=== PATIENT | male | born 1960 | race Caucasian/White ===

== ENCOUNTER 2023-03-25 12:23 | Inpatient (IN) ==
[2023-03-25 13:15] LABS: Appearance Urine Clear (Clear); Bacteria Urine Automated Negative (Negative); Bilirubin Urine Negative (Negative); Blood Urine Negative (Negative); Cast Urine Automated 0 /lpf (0-5); Color Urine Yellow; Epithelial Cell Urine Auto 0-5 /lpf (0-5); Glucose Urine UA Negative (Negative); Ketones Urine Negative (Negative); Leukocyte Esterase Urine Negative (Negative); Nitrite Urine Negative (Negative); Protein Urine 1+ (Negative); RBC Urine Automated 0-4 /hpf (0-4); Specific Gravity Urine 1.017 (1.000-1.030); Urobilinogen Urine Negative (Negative); WBC Urine Automated 0 /hpf (0-5); pH Urine 5.5 (4.5-7.5)
[2023-03-25 13:24] LABS: Basophils # (auto) 0.04 K/uL (0.00-0.20); Basophils % (auto) 0.7 %; Eosinophils % (auto) 3.3 %; Hemoglobin 16.4 g/dl (14.0-18.0); Immature Granulocytes # (auto) 0.01 K/uL (0.01-0.20); Immature Granulocytes % (auto) 0.2 %; Lymphocytes # (auto) 1.67 K/uL (1.20-3.40); Lymphocytes % (auto) 27.8 %; Mean Corpuscular Hemoglobin 33.7 pg (25.0-34.0); Mean Corpuscular Hgb Conc 34.9 g/dL (32.0-36.0); Mean Corpuscular Volume 96.5 fL (80.0-100.0); Mean Platelet Volume 9.9 fL (9.4-12.4); Monocytes # (auto) 0.75 K/uL (0.11-0.59); Monocytes % (auto) 12.5 %; Neutrophils # (auto) 3.34 K/uL (1.40-6.50); Neutrophils % (auto) 55.5 %; Platelet Count 231 K/uL (130-400); RDW Coefficient of Variation 12.6 % (11.5-14.5); RDW Standard Deviation 44.8 fL (36.4-46.3); Red Blood Count 4.87 M/uL (4.70-6.10); White Blood Count 6.01 K/ul (4.8-10.8)
--- NOTE | 2023-03-25 13:24 | Emergency Department Note ---
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 Sister provides most of history. 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 Reports the patient has been having left lower quadrant abdominal pain "for a while" which that she thinks is about the last few weeks. No reported vomiting, nausea or diarrhea. No fevers. Patient had a right nephrectomy secondary to renal cancer. Sister reports the patient has lost significant amounts of weight in the last few weeks despite a good appetite. No reported dysuria or hematuria. Patient denies any radiation of pain into the groin. Describes it as a pressure sensation. ROS: as above PHYSICAL EXAM: Constitutional: Patient appears in no acute distress. HENT: Head: Normocephalic and atraumatic. Eyes: EOMI, PERRL Mouth/Throat: Mucous membranes moist. Neck: Trachea midline. Neck supple. Cardiovascular: RRR, No murmurs, rubs or gallops. Intact distal pulses. Pulmonary/Chest: No respiratory distress. Breath sounds clear and equal bilaterally. No wheezes or rales. Abdominal: Abdomen soft, no rebound or guarding. LLQ TTP Musculoskeletal: No edema, tenderness or deformity noted. Skin: Warm and dry. No rash, erythema, pallor or cyanosis Psychiatric: Appropriate mood and affect for situation. Neurological: Alert and keenly responsive. CN II-XII grossly intact, moving all extremities equally and fully. MDM: - Vitals signs showed hypertension. - History obtained via patient. Patient presents with left lower quadrant abdominal pain. Patient reports that he has had pain in his left lower quadrant for the last few weeks that has gotten progressively more prominent. He reportedly was holding his abdomen at work today, nausea or diarrhea. No reported fevers. - Chronic conditions affecting care: HTN; HLD; DM-2; autism - Differential diagnoses include, but are not limited to: diverticulitis; ischemic colitis; inguinal hernia; ureteral calculi - Order placed for continuous cardiac monitoring. At this time, monitor showed rate of 57 bpm with normal sinus rhythm, per my interpretation. - External medical records reviewed. - Laboratory workup interpreted by myself showed normal WBC; stable electrolytes; elevated creatinine (Cr 1.44); transaminitis (AST 50; ALT 71) - CT abdomen/pelvis wo contrast obtained given patient's renal function and his history of a right-sided nephrectomy. CT showed inflammatory changes between the distal descending colon and proximal sigmoid colon with a linear configuration that likely represents diverticulitis with a developing fistula. No abscess or intraperitoneal free air. - UA negative for infection - Discussed case with [facility] with general surgery. No surgical interventions at this time. Agreed with IV antibiotics. - IV zosyn ordered. - Discussion was had with nurse wound care about patient's case and need for admission - Hospitalist consulted for admission - Patient admitted to [facility] service for further evaluation and management. ASSESSMENT AND PLAN: Diagnosis: diverticulitis with fistula Plan: admit Past Med/Surg History Medical History (Updated 03/25/23 @ 16:51 by Gisele Borden MD) Communication impairment Osteoarthritis DM type 2 (diabetes mellitus, type 2) NIIDM Hyperlipidemia Hypertension Autism Surgical History History of tooth extraction History of right cataract surgery History of colonoscopy Family History Sister Post-operative nausea and vomiting Uncle Diabetes Other No significant family history Social History Smoking Status: Never smoker Second Hand Exposure: No; Do You Dip or Chew Tobacco: No; Hx Alcohol Use: No Hx Substance Use: No Preferred Language: Serbian Communication Ability: Impaired Communication Ability Comment: DIFFICULTY UNDERSTANDING SOME INSTRUCTION; NOT ALWAYS WILLING TO SPEAK [employer] P[employer] Inspector Required: No Beliefs That Will Affect Care: None Current Living Situation: Parent Current Living Situation Comment: Lives with his mom Feels Safe at Home: Yes Assistive Devices: Glasses Allergies Allergies Allergy/AdvReac Type Severity Reaction Status Date / Time No Known Allergies Allergy Verified 03/25/23 16:09 Home Meds Home Medications Medication Instructions Recorded Confirmed simvastatin 10 mg tablet (Zocor) 10 mg PO QPM 12/10/17 03/25/23 aspirin 81 mg tablet,delayed 81 mg PO QAM 07/29/19 03/25/23 release amlodipine 10 mg tablet 10 mg PO QAM 03/25/23 03/25/23 brimonidine 0.2 % eye drops 1 drp OPL BID 03/25/23 03/25/23 chlorthalidone 25 mg tablet 12.5 mg PO QAM 03/25/23 03/25/23 cholestyramine-aspartame 4 gram 1 ea PO BID 03/25/23 03/25/23 oral powder for susp in a packet (Prevalite) cyanocobalamin (vitamin B-12) 1,000 mcg PO QAM 03/25/23 03/25/23 1,000 mcg tablet (Vitamin B-12) dorzolamide 22.3 mg-timolol 6.8 1 drp OPL BID 03/25/23 03/25/23 mg/mL eye drops latanoprost 0.005 % eye drops 1 drp OPL HS 03/25/23 03/25/23 losartan 100 mg tablet 100 mg PO QAM 03/25/23 03/25/23 metformin 500 mg tablet 500 mg PO BID 03/25/23 03/25/23 metoprolol succinate 50 mg 50 mg PO QAM 03/25/23 03/25/23 tablet,extended release 24 hr prednisolone acetate 1 % eye 1 drp OPL DAILY 03/25/23 03/25/23 drops,suspension Results & Data (ED) Vital Signs Vital Signs - 24 hr 03/25/23 12:32 03/25/23 13:02 03/25/23 14:15 Temperature 36.5 C Temperature Source Temporal Artery Scan Pulse Rate 60 68 Pulse Rate [Apical] 68 Pulse Rhythm Regular Pulse Rhythm [Apical] Regular Respiratory Rate 19 18 18 Respiratory Depth Normal Blood Pressure 174/86 H Blood Pressure [Right Arm] 157/89 H Blood Pressure Mean 115 Blood Pressure Mean [Right Arm] 111 Pulse Oximetry 100 100 98 Oxygen Delivery Method Room Air Room Air Room Air Sepsis Recent Fever Within 48 Hours No Sepsis New/Unexplained Change in Mental Status N/A Sepsis Action Taken by Nursing No Action Required 03/25/23 16:03 Temperature Temperature Source Pulse Rate Pulse Rate [Apical] 57 L Pulse Rhythm Pulse Rhythm [Apical] Regular Respiratory Rate 16 Respiratory Depth Blood Pressure Blood Pressure [Right Arm] 173/86 H Blood Pressure Mean Blood Pressure Mean [Right Arm] 115 Pulse Oximetry 99 Oxygen Delivery Method Room Air Sepsis Recent Fever Within 48 Hours Sepsis New/Unexplained Change in Mental Status Sepsis Action Taken by Nursing Laboratory Data 03/25/23 12:52 01/10/24 12:52 Lab Results 03/25/23 Range/Units 12:52 WBC 6.01 (4.8-10.8) K/ul RBC 4.87 (4.70-6.10) M/uL Hgb 16.4 (14.0-18.0) g/dl Hct 47.0 (42.0-52.0) % MCV 96.5 (80.0-100.0) fL MCH 33.7 (25.0-34.0) pg MCHC 34.9 (32.0-36.0) g/dL RDW Std Deviation 44.8 (36.4-46.3) fL RDW Coeff of Deandre 12.6 (11.5-14.5) % Plt Count 231 (130-400) K/uL MPV 9.9 (9.4-12.4) fL Immature Gran % (Auto) 0.2 % Neut % (Auto) 55.5 % Lymph % (Auto) 27.8 % [place] % (Auto) 12.5 % Eos % (Auto) 3.3 % Baso % (Auto) 0.7 % Neut # (Auto) 3.34 (1.40-6.50) K/uL Lymph # (Auto) 1.67 (1.20-3.40) K/uL [place] # (Auto) 0.75 H (0.11-0.59) K/uL Eos # (Auto) 0.20 (0.00-0.50) K/uL Baso # (Auto) 0.04 (0.00-0.20) K/uL Immature Gran # (Auto) 0.01 (0.01-0.20) K/uL Sodium 139 (136-145) mmol/L Potassium 4.0 (3.5-5.1) mmol/L Chloride 105 (98-107) mmol/L Carbon Dioxide 26 (21-32) mmol/L Anion Gap 8 (3-11) BUN 25 H (6-23) mg/dl Creatinine 1.44 H (0.6-1.4) mg/dl Est Cr Clr Drug Dosing 58.4 ml/min Est GFR ( Amer) 59.9 ml/min Est GFR (Non-Af Amer) 51.7 ml/min BUN/Creatinine Ratio 17.4 (10-20) Glucose 104 H (70-99(Fasting)) mg/dl Calcium 10.3 (8.6-10.3) mg/dl Total Bilirubin 0.8 (0.2-1.0) mg/dl AST 50 H (13-39) U/L ALT 71 H (7-52) U/L Alkaline Phosphatase 59 (34-104) U/L Total Protein 9.9 H (6.0-8.3) gm/dl Albumin 5.1 H (3.4-5.0) gm/dl Globulin 4.8 H (2.5-4.0) gm/dl Albumin/Globulin Ratio 1.1 (0.9-2) Lipase 60 (11-82) U/L Urine Color Yellow Urine Appearance Clear (Clear) Urine pH 5.5 (4.5-7.5) Ur Specific [place] 1.017 (1.000-1.030) Urine Protein 1+ H (Negative) Urine Glucose (UA) Negative (Negative) Urine Ketones Negative (Negative) Urine Blood Negative (Negative) Urine Nitrite Negative (Negative) Urine Bilirubin Negative (Negative) Urine Urobilinogen Negative (Negative) Ur Leukocyte Esterase Negative (Negative) Urine WBC (Auto) 0 (0-5) /hpf Urine RBC (Auto) 0-4 (0-4) /hpf U Hyaline Cast (Auto) 0 (0-5) /lpf U Epithel Cells (Auto) 0-5 (0-5) /lpf Urine Bacteria (Auto) Negative (Negative) Administered Medications Discontinued Medications Piperacillin Sod/Tazobactam Sod (Zosyn) 4.5 gm in 100 mls @ 200 mls/hr IV NOW ONE Stop: 03/25/23 16:16 Last Infusion: 03/25/23 16:29 Dose: Infused Documented By: Admin: 03/25/23 15:57 Dose: 200 mls/hr Documented By: SHENA Imaging Data Radiologist's Impression: Abdomen/Pelvis CT 03/25/23 13:01 CT SCAN OF THE ABDOMEN AND PELVIS WITHOUT IV CONTRAST CLINICAL HISTORY: Left lower quadrant abdominal pain. COMPARISON STUDY: Lumbar spine radiographs dated 12/15/2012. TECHNIQUE: CT scan of the abdomen and pelvis is performed from the lung bases to the proximal femora. Images are reviewed in the axial, sagittal, and coronal planes. IV contrast was not administered for this examination. A dose lowering technique was utilized adhering to the principles of ALARA. CT DOSE: 1134.83 mGy.cm FINDINGS: Lung bases: The heart is normal in size and without pericardial effusion. There are coronary artery calcifications. There is bibasilar scarring/atelectasis. The lung bases are otherwise clear. There is a small hiatal hernia. Liver: The unenhanced liver is normal in size, contour, and attenuation. There is no intrahepatic biliary ductal dilatation. Gallbladder: Unremarkable. Spleen: Normal in size and attenuation. Pancreas: Unremarkable. Adrenal glands: Unremarkable. Kidneys: The right kidney is surgically absent. The unenhanced left kidney is normal in size and without hydronephrosis. Left renal cyst measuring 2.0 cm. No left renal calculi are identified. Abdominal vasculature: The abdominal aorta is normal in course and caliber noting moderate atherosclerotic calcification. Bowel: There is moderate colonic fecal retention. Bilateral bowel containing groin hernias are discussed below. The appendix is well-visualized and normal. There is inflammatory change between the distal descending colon and the proximal sigmoid colon seen on axial image #254. This appears to arise from the superior aspect of the sigmoid at the site of a small diverticulum, best seen on the coronal reformatted images. This likely represents the sequelae of diverticulitis with developing fistula. No fluid collection is seen to suggest abscess. Peritoneum: There is no intraperitoneal free air or abdominal ascites. Lymphadenopathy: None. Pelvic viscera: The prostate gland is enlarged and heterogeneous. The bladder is mildly distended, and the wall is thickened/trabeculated indicating chronic outlet obstruction. There are bilateral fat-containing inguinal hernias. The left femoral hernia contains a small segment of the sigmoid colon. The right inguinal hernia contains a tiny segment of small bowel. Skeletal structures: No lytic or blastic lesions are seen. IMPRESSION: 1. There is inflammatory change between the distal descending colon and the proximal sigmoid as above. This is linear in configuration and appears to arise from a small diverticulum along the superior aspect of the sigmoid. This likely presents the sequelae of diverticulitis with a developing fistula. 2. No intraperitoneal free air is seen and there is no fluid collection to suggest abscess. 3. Status post right nephrectomy. 4. There are bilateral bowel containing groin hernias. 5. Prostatomegaly. 6. Additional findings as above. ACT 112: Negative or not required by law. Electronically signed by: Chito Patterson M.D. 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 Forms Stand Alone Forms: My [facility] Prescriptions Prescriptions: No Action simvastatin [Zocor] 10 mg tablet 10 mg PO QPM Rx Instructions: LAST FILLED 12/01/22 FOR 90 DAYS aspirin 81 mg Tablet,Delayed Release (Dr/Ec) 81 mg PO QAM latanoprost 0.005 % drops 1 drp OPL HS metformin 500 mg tablet 500 mg PO BID Rx Instructions: LAST FILLED 12/01/22 FOR 90 DAYS metoprolol succinate 50 mg tablet extended release 24 hr 50 mg PO QAM cyanocobalamin (vitamin B-12) [Vitamin B-12] 1,000 mcg Tablet 1,000 mcg PO QAM chlorthalidone 25 mg Tablet 12.5 mg PO QAM Rx Instructions: UNABLE TO VERIFY THIS MED. prednisolone acetate 1 % drops,suspension 1 drp OPL DAILY amlodipine 10 mg tablet 10 mg PO QAM brimonidine 0.2 % drops 1 drp OPL BID Rx Instructions: PT'S MOTHER UNSURE IF STILL USING THIS EYE DROP dorzolamide-timolol 22.3-6.8 mg/mL drops 1 drp OPL BID losartan 100 mg Tablet 100 mg PO QAM Rx Instructions: UNABLE TO VERIFY THIS MED. cholestyramine-aspartame [Prevalite] 4 gram powder in packet 1 ea PO BID Rx Instructions: LAST FILLED 01/30/23 FOR 30 DAYS Referrals Referrals: Sergey Hameed MD [Primary Care Provider] -
[2023-03-25 13:36] LABS: Albumin Globulin Ratio 1.1 (0.9-2); Albumin Level 5.1 gm/dl (3.4-5.0); BUN Creatinine Ratio 17.4 (10-20); Bilirubin,Total 0.8 mg/dl (0.2-1.0); Calcium 10.3 mg/dl (8.6-10.3); Creatinine Clr Calc Pharmacy 58.4 ml/min; Est GFR (African American) 59.9 ml/min; Est GFR (Non-African American) 51.7 ml/min; Globulin 4.8 gm/dl (2.5-4.0); Total Protein 9.9 gm/dl (6.0-8.3)
--- NOTE | 2023-03-25 14:42 | CT Scan Report ---
CT SCAN OF THE ABDOMEN AND PELVIS WITHOUT IV CONTRAST CLINICAL HISTORY: Left lower quadrant abdominal pain. COMPARISON STUDY: Lumbar spine radiographs dated 12/15/2012. TECHNIQUE: CT scan of the abdomen and pelvis is performed from the lung bases to the proximal femora. Images are reviewed in the axial, sagittal, and coronal planes. IV contrast was not administered for this examination. A dose lowering technique was utilized adhering to the principles of ALARA. CT DOSE: 1134.83 mGy.cm FINDINGS: Lung bases: The heart is normal in size and without pericardial effusion. There are coronary artery c alcifications. There is bibasilar scarring/atelectasis. The lung bases are otherwise clear. There is a small hiatal hernia. Liver: The unenhanced liver is normal in size, contour, and attenuation. There is no intrahepatic belem iary ductal dilatation. Gallbladder: Unremarkable. Spleen: Normal in size and attenuation. Pancreas: Unremarkable. Adrenal glands: Unremarkable. Kidneys: The right kidney is surgically absent. The unenhanced left kidney is normal in size and with out hydronephrosis. Left renal cyst measuring 2.0 cm. No left renal calculi are identified. Abdominal vasculature: The abdominal aorta is normal in course and caliber noting moderate atheroscle rotic calcification. Bowel: There is moderate colonic fecal retention. Bilateral bowel containing groin hernias are discus sed below. The appendix is well-visualized and normal. There is inflammatory change between the dist al descending colon and the proximal sigmoid colon seen on axial image #254. This appears to arise fr om the superior aspect of the sigmoid at the site of a small diverticulum, best seen on the coronal r eformatted images. This likely represents the sequelae of diverticulitis with developing fistula. No fluid collection is seen to suggest abscess. Peritoneum: There is no intraperitoneal free air or abdominal ascites. Lymphadenopathy: None. Pelvic viscera: The prostate gland is enlarged and heterogeneous. The bladder is mildly distended, an d the wall is thickened/trabeculated indicating chronic outlet obstruction. There are bilateral fat-c ontaining inguinal hernias. The left femoral hernia contains a small segment of the sigmoid colon. Th e right inguinal hernia contains a tiny segment of small bowel. Skeletal structures: No lytic or blastic lesions are seen. IMPRESSION: 1. There is inflammatory change between the distal descending colon and the proximal sigmoid as above . This is linear in configuration and appears to arise from a small diverticulum along the superior a spect of the sigmoid. This likely presents the sequelae of diverticulitis with a developing fistula. 2. No intraperitoneal free air is seen and there is no fluid collection to suggest abscess. 3. Status post right nephrectomy. 4. There are bilateral bowel containing groin hernias. 5. Prostatomegaly. 6. Additional findings as above. ACT 112: Negative or not required by law. Electronically signed by: Chito Patterson M.D. 03/25/2023 2:41 PM
[2023-03-25] MEDS ORDERED: PIPERACILLIN/TAZOBACTAM 4.5 GM/100 ML BAG IV ONE (15:47)
--- NOTE | 2023-03-25 15:51 | Surgery Consultation ---
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 ER with his sister Tiffanie Quezada. Tiffanie reports that she was called by [employer] and told that Patty was acting like he was having some abdominal pain and favoring the LLQ, which prompted her to bring him in. Patient denies fever, chills, SOB, CP, abdominal pain, N/V. Tiffanie reports Patty does not complain and does not tell when he is having pain. A CT scan was completed and reading diverticulitis with possible fistula. Tiffanie and Patty deny known change in bowel or bladder habits, or known hx of diverticulosis. Tiffanie does report she thinks Patty has lost some weight in the last two months despite him eating a lot. Patty lives with his 90 year old mother and another sister. Tiffanie reports she makes all the medical decisions for patty and phone number is [phone]. Abdominal exam: soft , non-distended, non-rigid, patient noted to tense up with deep palpation in LLQ and RLQ however when asked if he is having pain he reports no. No elevation of WBC , VSS, afebrile On CT scan IMPRESSION: 1. There is inflammatory change between the distal descending colon and the proximal sigmoid as above. This is linear in configuration and appears to arise from a small diverticulum along the superior aspect of the sigmoid. This likely presents the sequelae of diverticulitis with a developing fistula. 2. No intraperitoneal free air is seen and there is no fluid collection to suggest abscess. 3. Status post right nephrectomy. 4. There are bilateral bowel containing groin hernias. 5. Prostatomegaly. 6. Additional findings as above. Keep NPO IV Fluids for hydration IV antiemetic PRN IV antibiotics Zosyn was started in the ER IV analgesic PRN Will discuss case with on-call surgeon Dr. Cowan and further recommendations will be forthcoming. Supervising Physician Co-Signing Physician Notes pnt S&E, d/w family, labs and imaging reviewed, agree with above. admitted with abd pain, ct with diverticulosis with possible colocolonic fistula. afvss, abd soft, nt. wbc normal. ct personally reviewed and limited w/o iv or oral contrast, see diverticulum with likely mild diverticulitis and linear area of concern, but fistula difficult to call definitively. no surgical intervention indicated. recommend clears today, iv abx. outpatient f/u with colorectal surgery/GI. ct w/ oral and iv might better define process, but don't need to perform while inpatient unless condition worsens. History of Present Illness Reason for Consultation: CT showing diverticulitis with possible fistula Requesting Physician: Dr. Borden History of Present Illness Patient is a 62 yo male with [facility] Communication impairment, Osteoarthritis, DM type 2 (diabetes mellitus, type 2), Hyperlipidemia ,Hypertension, Autism, Renal cancer s/p right nephrectomy, that presented to the [facility] ER with his sister Tiffanie Quezada. Tiffanie reports that she was called by [employer] and told that Patty was acting like he was having some abdominal pain and favoring the LLQ, which prompted her to bring him in. Patient denies fever, chills, SOB, CP, abdominal pain, N/V. Tiffanie reports Patty does not complain and does not tell when he is having pain. A CT scan was completed and reading diverticulitis with possible fistula. Tiffanie and Patty deny known change in bowel or bladder habits, or known hx of diverticulosis. Tiffanie does report she thinks Patty has lost some weight in the last two months despite him eating a lot. Patty lives with his 90 year old mother and another sister. Tiffanie reports she makes all the medical decisions for patty and phone number is [phone]. Allergies Allergy/AdvReac Type Severity Reaction Status Date / Time No Known Allergies Allergy Verified 03/25/23 16:09 Home Medications Medication Instructions Recorded Confirmed Type simvastatin 10 mg tablet (Zocor) 10 mg PO QPM 12/10/17 03/25/23 History aspirin 81 mg tablet,delayed 81 mg PO QAM 07/29/19 03/25/23 History release amlodipine 10 mg tablet 10 mg PO QAM 03/25/23 03/25/23 History brimonidine 0.2 % eye drops 1 drp OPL BID 03/25/23 03/25/23 History chlorthalidone 25 mg tablet 12.5 mg PO QAM 03/25/23 03/25/23 History cholestyramine-aspartame 4 gram 1 ea PO BID 03/25/23 03/25/23 History oral powder for susp in a packet (Prevalite) cyanocobalamin (vitamin B-12) 1,000 mcg PO QAM 03/25/23 03/25/23 History 1,000 mcg tablet (Vitamin B-12) dorzolamide 22.3 mg-timolol 6.8 1 drp OPL BID 03/25/23 03/25/23 History mg/mL eye drops latanoprost 0.005 % eye drops 1 drp OPL HS 03/25/23 03/25/23 History losartan 100 mg tablet 100 mg PO QAM 03/25/23 03/25/23 History metformin 500 mg tablet 500 mg PO BID 03/25/23 03/25/23 History metoprolol succinate 50 mg 50 mg PO QAM 03/25/23 03/25/23 History tablet,extended release 24 hr prednisolone acetate 1 % eye 1 drp OPL DAILY 03/25/23 03/25/23 History drops,suspension Patient History Medical History CKD (chronic kidney disease), stage III Renal cell carcinoma Communication impairment Osteoarthritis DM type 2 (diabetes mellitus, type 2) NIIDM Hyperlipidemia Hypertension Autism Surgical History History of nephrectomy, right History of tooth extraction History of right cataract surgery History of colonoscopy Family History Sister Post-operative nausea and vomiting Uncle Diabetes Other No significant family history Social History Smoking Status: Never smoker Second Hand Exposure: No; Do You Dip or Chew Tobacco: No; Hx Alcohol Use: No Hx Substance Use: No Preferred Language: Ethiopian Communication Ability: Impaired Communication Ability Comment: DIFFICULTY UNDERSTANDING SOME INSTRUCTION; NOT ALWAYS WILLING TO SPEAK Drosser Required: No Beliefs That Will Affect Care: None Current Living Situation: Parent Current Living Situation Comment: Lives with his mom Feels Safe at Home: Yes Assistive Devices: Glasses Review of Systems Constitutional: + weight loss; no fever and no chills Eyes: + corrective lenses Ear, Nose, Mouth, Throat: no problem reported Respiratory: no cough and no dyspnea Cardiovascular: no chest pain Gastrointestinal: no abdominal pain, no nausea, no vomiting and no change in bowel habits Genitourinary: no problem reported Musculoskeletal: no muscle weakness Integumentary: no rash Psychiatric: Trouble with communication Physical Exam Physical Exam: alert Constitutional: cooperative and comfortable; no acute distress ENMT: external ear and nose normal, oropharynx normal Neck: trachea midline, no thyromegaly Respiratory: normal respiratory effort and able to speak in complete sentences; no respiratory distress Cardiovascular: Rate/Rhythm: regular rate Gastrointestinal (Abdomen): Inspection/Auscultation: abdomen not distended Percussion/Palpation: abdomen soft; abdomen not rigid Skin: no rashes, warm and dry Neurologic: Hx of autism Results & Data Vital Signs (Past 12 Hours) Vital Signs Temp Pulse Pulse Resp BP BP Pulse Ox 03/25/23 14:15 68 18 157/89 H 98 03/25/23 13:02 68 18 100 03/25/23 12:32 97.7 F 60 19 174/86 H 100 O2 Del Method 03/25/23 14:15 Room Air 03/25/23 13:02 Room Air 03/25/23 12:32 Room Air Diagnostic Findings [place], [place] [phone] CT Scan Report Patient: PATTY BAILEY Admit Date: 03/25/23 MR#: [id number] Address1: [address] [place] [address] Acct ID:[id number] Address2: Date: 1960 [facility] Zip: [place] [address] Age: 62 Location: ED Sex: M Room/Bed: Att Phy: Diagnosis: FLANK PAIN Laura Phy: Sergey Hameed MD Service Date: 03/25/23 [facility] Phy: Interpreting Phy: Chito Patterson MDAdmit Phy: Ordering Phy: Gisele Borden MD cc: ~ CT SCAN OF THE ABDOMEN AND PELVIS WITHOUT IV CONTRAST CLINICAL HISTORY: Left lower quadrant abdominal pain. COMPARISON STUDY: Lumbar spine radiographs dated 12/15/2012. TECHNIQUE: CT scan of the abdomen and pelvis is performed from the lung bases to the proximal femora. Images are reviewed in the axial, sagittal, and coronal planes. IV contrast was not administered for this examination. A dose lowering technique was utilized adhering to the principles of ALARA. CT DOSE: 1134.83 mGy.cm FINDINGS: Lung bases: The heart is normal in size and without pericardial effusion. There are coronary artery calcifications. There is bibasilar scarring/atelectasis. The lung bases are otherwise clear. There is a small hiatal hernia. Liver: The unenhanced liver is normal in size, contour, and attenuation. There is no intrahepatic biliary ductal dilatation. Gallbladder: Unremarkable. Spleen: Normal in size and attenuation. Pancreas: Unremarkable. Adrenal glands: Unremarkable. Kidneys: The right kidney is surgically absent. The unenhanced left kidney is normal in size and without hydronephrosis. Left renal cyst measuring 2.0 cm. No left renal calculi are identified. Abdominal vasculature: The abdominal aorta is normal in course and caliber noting moderate atherosclerotic calcification. Bowel: There is moderate colonic fecal retention. Bilateral bowel containing groin hernias are discussed below. The appendix is well-visualized and normal. There is inflammatory change between the distal descending colon and the proximal sigmoid colon seen on axial image #254. This appears to arise from the superior aspect of the sigmoid at the site of a small diverticulum, best seen on the coronal reformatted images. This likely represents the sequelae of diverticulitis with developing fistula. No fluid collection is seen to suggest abscess. Peritoneum: There is no intraperitoneal free air or abdominal ascites. Lymphadenopathy: None. Pelvic viscera: The prostate gland is enlarged and heterogeneous. The bladder is mildly distended, and the wall is thickened/trabeculated indicating chronic outlet obstruction. There are bilateral fat-containing inguinal hernias. The left femoral hernia contains a small segment of the sigmoid colon. The right inguinal hernia contains a tiny segment of small bowel. Skeletal structures: No lytic or blastic lesions are seen. IMPRESSION: 1. There is inflammatory change between the distal descending colon and the proximal sigmoid as above. This is linear in configuration and appears to arise from a small diverticulum along the superior aspect of the sigmoid. This likely presents the sequelae of diverticulitis with a developing fistula. 2. No intraperitoneal free air is seen and there is no fluid collection to suggest abscess. 3. Status post right nephrectomy. 4. There are bilateral bowel containing groin hernias. 5. Prostatomegaly. 6. Additional findings as above. Results Complete Blood Count Results: RBC 4.87 M/uL (4.70-6.10) 03/25/23 WBC 6.01 K/ul (4.8-10.8) 03/25/23 Hgb 16.4 g/dl (14.0-18.0) 03/25/23 Hct 47.0 % (42.0-52.0) 03/25/23 Plt Count 231 K/uL (130-400) 03/25/23 Results BMP Results: Sodium 139 mmol/L (136-145) 03/25/23 Potassium 4.0 mmol/L (3.5-5.1) 03/25/23 Chloride 105 mmol/L (98-107) 03/25/23 Carbon Dioxide 26 mmol/L (21-32) 03/25/23 Anion Gap 8 (3-11) 03/25/23 BUN 25 mg/dl (6-23) H 03/25/23 Creatinine 1.44 mg/dl (0.6-1.4) H 03/25/23 Glucose 104 mg/dl (70-99(Fasting)) H 03/25/23 Results CMP Results: Na 139 mmol/L (136-145) 03/25/23 K 4.0 mmol/L (3.5-5.1) 03/25/23 Cl 105 mmol/L (98-107) 03/25/23 CO2 26 mmol/L (21-32) 03/25/23 Anion Gap 8 (3-11) 03/25/23 BUN 25 mg/dl (6-23) H 03/25/23 Creatinine 1.44 mg/dl (0.6-1.4) H 03/25/23 Estimated GFR ( Amer) 59.9 ml/min 03/25/23 Estimated GFR (Non-Af Amer) 51.7 ml/min 03/25/23 BUN/Creatinine Ratio 17.4 (10-20) 03/25/23 Glu 104 mg/dl (70-99(Fasting)) H 03/25/23 Ca 10.3 mg/dl (8.6-10.3) 03/25/23 Total Bilirubin 0.8 mg/dl (0.2-1.0) 03/25/23 AST 50 U/L (13-39) H 03/25/23 ALT 71 U/L (7-52) H 03/25/23 Alkaline Phosphatase 59 U/L (34-104) 03/25/23 TP 9.9 gm/dl (6.0-8.3) H 03/25/23 Albumin 5.1 gm/dl (3.4-5.0) H 03/25/23 Globulin 4.8 gm/dl (2.5-4.0) H 03/25/23 Albumin/Globulin Ratio 1.1 (0.9-2) 03/25/23 PG Care Time/CCT Total # of Minutes Spent Total Time Spent with Patient: Total time spent is greater than 50% in coordination of care (as documented) at patient's floor/unit and/or counseling patient: Coding Level of Care Code 08396 INT INP/OBS CARE 40MIN Diagnoses 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
--- NOTE | 2023-03-25 17:30 | History & Physical Report ---
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 In the ED, CT ABD/pelvis shows There is inflammatory change between the distal descending colon and the proximal sigmoid as above. This is linear in configuration and appears to arise from a small diverticulum along the superior aspect of the sigmoid. This likely presents the sequelae of diverticulitis with a developing fistula. Patient is afebrile, WBC 6K Evaluated by general surgery in the ED S/p Zosyn in the ED, continue with N.p.o., IVF Colonoscopy 04/2022-entire examined colon is normal, recommend repeat in 5 years; will need follow-up colonoscopy in 6 to 8 weeks in follow up of diverticulitis and reported weight loss by sister. (2) Hypertension: Plan: Chronic, stable Continue amlodipine, losartan, metoprolol Hold chlorthalidone for now (3) DM type 2 (diabetes mellitus, type 2): Plan: Hgb A1c 6.4 12/2021 Hold metformin and utilize NovoLog per protocol while hospitalized Update A1c with a.m. labs (4) CKD (chronic kidney disease), stage III: Plan: Baseline creatinine mid 1s Creatinine 1.4 today Monitor renal functions (5) Renal cell carcinoma: Plan: S/p right nephrectomy No acute issue DVT PROPHYLAXIS SCDs for now Patient seen in collaboration conversation with Dr. Tillman. I spent a total of 75 minutes coordinating, documenting, and providing care for this patient excluding time spent in the performance of separately billed services. This included personally reviewing all current laboratories and imaging studies, medication reconciliation, outpatient chart review, and discus janie with specialists. History of Present Illness Chief Complaint: Abdominal pain Primary Care Provider: Sergey Hameed MD 62-year-old male with PMH intellectual disability, DM type II, dyslipidemia, HTN, CKD stage III, renal cell carcinoma s/p right nephrectomy, and other problems listed below who presents to the ED for evaluation of abdominal pain. History limited from the patient due to underlying intellectual disability, history obtained from the sister who is the bedside. 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 Sister also reports that she has noted a large amount of weight loss over the past 2 months however she is unsure of how many pounds. Reports that patient continues to have a good appetite. No other symptoms reported. Denies vomiting and diarrhea. No fevers or chills. In the ED, patient is afebrile, hemodynamically stable, WBC 6K. CT ABD/pelvis shows There is inflammatory change between the distal descending colon and the proximal sigmoid as above. This is linear in configuration and appears to arise from a small diverticulum along the superior aspect of the sigmoid. This likely presents the sequelae of diverticulitis with a developing fistula. Patient was given IV Zosyn and general surgery has evaluated the patient. Allergies Allergy/AdvReac Type Severity Reaction Status Date / Time No Known Allergies Allergy Verified 03/25/23 16:09 Home Medications Medication Instructions Recorded Confirmed Type simvastatin 10 mg tablet (Zocor) 10 mg PO QPM 12/10/17 03/25/23 History aspirin 81 mg tablet,delayed 81 mg PO QAM 07/29/19 03/25/23 History release amlodipine 10 mg tablet 10 mg PO QAM 03/25/23 03/25/23 History brimonidine 0.2 % eye drops 1 drp OPL BID 03/25/23 03/25/23 History chlorthalidone 25 mg tablet 12.5 mg PO QAM 03/25/23 03/25/23 History cholestyramine-aspartame 4 gram 1 ea PO BID 03/25/23 03/25/23 History oral powder for susp in a packet (Prevalite) cyanocobalamin (vitamin B-12) 1,000 mcg PO QAM 03/25/23 03/25/23 History 1,000 mcg tablet (Vitamin B-12) dorzolamide 22.3 mg-timolol 6.8 1 drp OPL BID 03/25/23 03/25/23 History mg/mL eye drops latanoprost 0.005 % eye drops 1 drp OPL HS 03/25/23 03/25/23 History losartan 100 mg tablet 100 mg PO QAM 03/25/23 03/25/23 History metformin 500 mg tablet 500 mg PO BID 03/25/23 03/25/23 History metoprolol succinate 50 mg 50 mg PO QAM 03/25/23 03/25/23 History tablet,extended release 24 hr prednisolone acetate 1 % eye 1 drp OPL DAILY 03/25/23 03/25/23 History drops,suspension Past Med/Surg History Medical History CKD (chronic kidney disease), stage III Renal cell carcinoma Communication impairment Osteoarthritis DM type 2 (diabetes mellitus, type 2) NIIDM Hyperlipidemia Hypertension Autism Surgical History History of nephrectomy, right History of tooth extraction History of right cataract surgery History of colonoscopy Family History Sister Post-operative nausea and vomiting Uncle Diabetes Other No significant family history Social History Smoking Status: Never smoker Second Hand Exposure: No; Do You Dip or Chew Tobacco: No; Hx Alcohol Use: No Hx Substance Use: No Preferred Language: Occitan Communication Ability: Impaired Communication Ability Comment: patient can answer yes or no questions but otherwise non-verbal Administrative Project Coordinator Required: No Beliefs That Will Affect Care: None Current Living Situation: Family Current Living Situation Comment: lives at home with mother Feels Safe at Home: Yes Assistive Devices: Glasses Physical Exam Constitutional: WD/WN, vitals as above no acute distress Eyes: PERRL, conjunctivae normal, anicteric sclerae ENMT: external ear and nose normal, oropharynx normal Respiratory: normal respiratory effort, lungs clear to auscultation Cardiovascular: Rate/Rhythm: regular rate and regular rhythm Vessels: normal peripheral pulses Extremities: no edema Gastrointestinal (Abdomen): normal bowel sounds, soft, nontender, no hepatosplenomegaly Musculoskeletal: no cyanosis or clubbing, extremities motor strength 5/5 Skin: no rashes, warm and dry Neurologic: PERRL, EOMI, accommodation nl, no face palsy, no dysarthria Underlying collateral disability Psychiatric: Orientation: alert, oriented to person, oriented to place and cooperative Results & Data Results & Data Vital Signs (Past 12 Hours) Vital Signs Temp Pulse Pulse Resp BP BP Pulse Ox 03/25/23 16:03 57 L 16 173/86 H 99 03/25/23 14:15 68 18 157/89 H 98 03/25/23 13:02 68 18 100 03/25/23 12:32 36.5 C 60 19 174/86 H 100 O2 Del Method 03/25/23 16:03 Room Air 03/25/23 14:15 Room Air 03/25/23 13:02 Room Air 03/25/23 12:32 Room Air Laboratory Results Short CBC 03/25/23 Range/Units 12:52 WBC 6.01 (4.8-10.8) K/ul Hgb 16.4 (14.0-18.0) g/dl Hct 47.0 (42.0-52.0) % Plt Count 231 (130-400) K/uL [facility] 03/25/23 12:52 Sodium 139 Potassium 4.0 Chloride 105 Carbon Dioxide 26 BUN 25 H Creatinine 1.44 H Glucose 104 H Calcium 10.3 Liver Function 03/25/23 Range/Units 12:52 Total Bilirubin 0.8 (0.2-1.0) mg/dl AST 50 H (13-39) U/L ALT 71 H (7-52) U/L Alkaline Phosphatase 59 (34-104) U/L Albumin 5.1 H (3.4-5.0) gm/dl Urine 03/25/23 Range/Units 12:52 Urine Color Yellow Urine Appearance Clear (Clear) Urine pH 5.5 (4.5-7.5) Ur Specific [place] 1.017 (1.000-1.030) Urine Protein 1+ H (Negative) Urine Glucose (UA) Negative (Negative) Diagnostic Findings Short CBC 03/25/23 Range/Units 12:52 WBC 6.01 (4.8-10.8) K/ul Hgb 16.4 (14.0-18.0) g/dl Hct 47.0 (42.0-52.0) % Plt Count 231 (130-400) K/uL [facility] 03/25/23 12:52 Sodium 139 Potassium 4.0 Chloride 105 Carbon Dioxide 26 BUN 25 H Creatinine 1.44 H Glucose 104 H Calcium 10.3 Liver Function 03/25/23 Range/Units 12:52 Total Bilirubin 0.8 (0.2-1.0) mg/dl AST 50 H (13-39) U/L ALT 71 H (7-52) U/L Alkaline Phosphatase 59 (34-104) U/L Albumin 5.1 H (3.4-5.0) gm/dl Urine 03/25/23 Range/Units 12:52 Urine Color Yellow Urine Appearance Clear (Clear) Urine pH 5.5 (4.5-7.5) Ur Specific [place] 1.017 (1.000-1.030) Urine Protein 1+ H (Negative) Urine Glucose (UA) Negative (Negative) Code Status & VTE Plan VTE Prophylaxis Plan VTE Prophylaxis will be ordered: Yes Supervising Physician Co-Signing Physician Notes I have seen and examined the patient and have discussed the case with the provider above. I agree with the assessment and plan as stated. 62-year-old man with IDN history as noted above presents with right lower quadrant pain. The patient is somewhat nonverbal and although he can follow instructions he is reporting no symptoms. On exam he is hemodynamically stable and afebrile and appears comfortable until I push in his left lower quadrant when he starts to tense up somewhat. Abdomen is nondistended. Physical exam as otherwise noted above. Patient has no evidence of sepsis. CT abdomen pelvis revealed sequela of diverticulitis with developing fistula. Patient is afebrile and normal white blood cell count. Agree with plan to continue broad-spectrum antibiotics. Appreciate surgery evaluation patient. Placed on clear liquid diet per recommendations. Continue supportive care efforts. I did discuss the plan with mom and sister who are at bedside. DO Primo
--- OUTSIDE RECORDS SUMMARY | 2023-03-25 17:52 | External Medical Summary | Summary of Care ---
Author Name Unknown Organization [facility] Address [address] [facility] [address] Phone [phone] Care Team Providers Care Firing Pin Gauger Name Role Phone Sergey Belcher MD Primary Care Provider + Reason for Visit * Reason Onset Date Comments Medication Refill 12/23/2022 Encounter Details Date Type Department Care Team Description 12/23/2022 Refill General Internal Medicine [facility] [address] [place] [address] [facility] [address] [facility] [address] Allergies No known active allergiesdocumented as of this encounter (statuses as of 12/24/2022) Medications Medication Sig Dispensed Refills Start Date End Date Status GLUCOMETER DIABETES CARE KITIndications:DM type 2, goal A1c below 7 check glucose fasting in the morning daily 1 0 05/28/2005 Active aspirin 81 MG chewable tablet Take 1 Tablet by mouth in the morning. with food.. 100 Tab 5 10/24/2015 Active prednisolone acetate (PRED FORTE) 1 % ophthalmic suspension 0 03/24/2017 Active Cyanocobalamin (VITAMIN B-12) 1000 MCG TabletIndications:B 12 deficiency Take 1 Tablet by mouth in the morning. 0 03/31/2017 Active OneTouch UltraSoft Lancets MISCIndications:Typ e 2 diabetes mellitus with hemoglobin A1c goal of less than 7.0% ([facility]) Use once daily every morning; dx E11.9 100 Each 1 09/12/2019 Active Latanoprost 0.005 % Ophthalmic Solution (Xalatan) Instill 1 Drop into the left eye at bedtime. 0 07/02/2020 Active Chlorthalidone 25 MG Oral Tablet (Hygroton)Indicatio ns:HTN, goal below 140/90 Take by mouth 0.5 Tablets in the morning. In the morning.. 45 Tablet 3 08/21/2021 Active Losartan Potassium 100 MG Oral Tablet (Cozaar)Indications :HTN, goal below 140/90 Take by mouth 1 Tablet in the morning. 90 Tablet 3 08/21/2021 Active OneTouch Ultra Blue In Vitro Strip (Glucose Blood) CHECK GLUCOSE DAILY IN THE MORNING E11.9 100 Strip 3 03/03/2022 Active Dorzolamide HCl-Timolol Mal 22.3-6.8 MG/ML Ophthalmic Solution (Cosopt Ocumeter Plus) INSTILL 1 DROP INTO THE LEFT EYE TWICE DAILY 0 06/19/2022 Active Brimonidine Tartrate-Timolol 0.2-0.5 % Ophthalmic Solution 1 Drop in the morning and 1 Drop before bedtime. 0 Active Cholecalciferol 50 MCG (1999 UT) Oral CapsuleIndications: Vitamin D deficiency Take 1 Capsule by mouth in the morning. 30 Capsule 3 09/29/2022 01/27/2023 Active amLODIPine Besylate 10 MG Oral Tablet (Norvasc)Indication s:HTN, goal below 140/90 Take 1 Tablet by mouth in the morning. 90 Tablet 3 11/14/2022 Active Metoprolol Succinate ER 50 MG Oral Tablet Extended Release 24 Hour (toPROL XL)Indications:HTN, goal below 140/90 Take 1 Tablet by mouth in the morning. 90 Tablet 3 11/14/2022 Active Simvastatin 10 MG Oral Tablet (Zocor)Indications: Dyslipidemia, goal LDL below 160 take 1 tablet by mouth at bedtime 90 Tablet 0 12/01/2022 Active Cholestyramine Light 4 GM Oral Packet (Prevalite)Indicati ons:Dyslipidemia, goal LDL below 100 DISSOLVE 1 PACKET IN 8 OZ OF WATER AND DRINK BY MOUTH TWICE A DAY DIRECTED 60 Packet 2 12/04/2022 Active metFORMIN HCl 500 MG Oral Tablet (Glucophage)Indicat ions:Type 2 diabetes mellitus with hemoglobin A1c goal of less than 7.0% (HCC) take 1 tablet by mouth twice a day with food 180 Tablet 1 12/22/2022 Active Dynamis Softwareuch Ultra In Vitro Strip (Glucose Blood) CHECK GLUCOSE DAILY IN THE MORNING E11.9 100 Strip 3 12/24/2022 Active documented as of this encounter (statuses as of 12/24/2022) Active Problems Problem Noted Date Elevated LFTs 02/02/2022 Chronic kidney disease, stage 3a 022 Overview: Per CKD protocol Renal cell carcinoma of right kidney HTN, goal below 140/90 05/21/2015 Overview: Per HTN Protocol #27. DYSLIPIDEMIA, GOAL LDL BELOW 100 009 Overview: Per Lipid Taxonomy. Type 2 diabetes mellitus with hemoglobin A1c goal of less than 7.0% 01/11/2009 Overview: Per Diabetes Taxonomy. ICD-10 update of inactive term Intellectual disability 06/10/2000 documented as of this encounter (statuses as of 12/24/2022) Resolved Problems Problem Noted Date Resolved Date Type 2 diabetes mellitus with diabetic nephropat hy 12/23/2021 03/21/2022 Hematuria, gross 03/27/2021 12/23/2021 Right renal mass 03/27/2021 12/23/2021 HTN, GOAL BELOW 140/80 11/03/2011 6 Overview: Per HTN Protocol #27. HTN, GOAL BELOW 130/80 02/06/2009 2 Overview: Modified per HTN protocol #16. ADVANCE DIRECTIVE INFORMATION 07/16/2004 Overview: not applicable Type 2 diabetes mellitus wit h hemoglobin A1c goal of less than 7.0% 07/16/2004 01/11/2009 Overview: Per Diabetes Taxonomy. ICD-10 update of inactive term Other specified disorders of liver 04/26/2004 07/28/2017 HYPERLIPIDEMIA NEC-NOS 9 Overview: Per Lipid Taxonomy. HYPERTENSION NOS 02/06/2009 Overview: Modified per HTN protocol #16. documented as of this encounter (statuses as of 12/24/2022) Immunizations Name Administration Dates Next Due COVID-19 mRNA, LNP-s, No Pre serve, 2-Dose Series (Pfizer) 12/18/2020,06/04/2020,05/14/2020 Diptheria/Tetanus (Adult) 08/14/2005 H1N1 2009 Influenza, IM 01/28/2009 Hepatitis B, 20+ yrs 04/14/2014,10/25/2013,09/20 PPD 10/22/2015,10/15/2015 Pneumococcal Conjugate Vacci ne, 20-valent ([id number]) 07/02/2022 Pneumococcal Polysaccharide PPV23 (Pneumovax) 04/14/2006 SEASONAL INFLUENZA, PF, 6 M & Above, IM , (FLULAVAL or FLUZONE) 12/23/2021,01/25/2021,12/09/2019,11/23,12/07/2017 Seasonal Influenza, Quadriva lent, No Preserve, IM 11/26/2016,01/25/2016,01/18/2015 Seasonal Influenza, Split, I IV3, With Preserve, Inj 12/26/2013,01/28/2013,12/09/2011,12/10,11/28/2009,01/09/2009,12/30/2007 ,12/31/2006,02/04/2006 TDAP (age 10 and older)(Boostrix) 10/24/2015 documented as of this encounter Social History Tobacco Use Types Packs/Day Years Used Date Smoking Tobacco: Never Smokeless Tobacco: Never Alcohol Use Standard Drinks/Week Comments No 0 (1 standard drink = 0.6 oz pur e alcohol) Food Insecurity Answer Date Recorded Within the past 12 months, y ou worried that your food would run out before you got money to buy more. Never true 09/24/2020 Within the past 12 months, t he food you bought just didn't last and you didn't have money to get more. Never true 09/24/2020 Sex Assigned at Date Recorded Male 08/25/2018 3:37 PM E [employer] Job Start Date Occupation Industry Not on file Not on file Not on file documented as of this encounter Functional Status Functional Status Response Date of Assess ment Are you deaf or do you have serious difficulty h earing? No 05/09/2021 Are you blind or do you have serious difficulty seeing, even when wearing glasses? No 05/09/2021 Do you have serious difficul ty walking or climbing stairs? (5 years old or older) No 05/09/2021 Do you have difficulty dress ing or bathing? (5 years old or older) No 05/09/2021 Because of a physical, menta l, or emotional condition, do you have difficulty doing errands alone such as visiting a doctor s office or shopping? (15 years old or older) Yes 05/09/19 Cognitive Status Response Date of Assessm ent Because of a physical, menta l, or emotional condition, do you have serious difficulty concentrating, remembering, or making decisions? (5 years old or older Yes 05/09/2021 documented as of this encounter Miscellaneous Notes * Telephone Encounter - Gurmeet Jerome RPh - 12/24/2022 10:35 AM EDTSigned Prescriptions: Disp Refills OneTouch Ultra In Vitro Strip (Glucose Blo*100 St*3 Sig: CHECK GLUCOSE DAILY IN THE MORNING E11.9Authorizing Provider: SERGEY BELCHER User: GURMEET JEROME * Telephone Encounter - Milly Aguilera CPhT - 12/23/2022 10:58 AM EDT Could not pend previous RX Did you pend patient's preferred pharmacy and medication before forwarding?yes Pharmacy: [id number] Pending Prescriptions: Disp Refills OneTouch Ultra In Vitro Strip (Glucose Bl*100 St*3 Sig: CHECK GLUCOSE DAILY IN THE MORNING E11.9 Last Visit: 07/02/2022 (in office), Visit date not found (telemedicine) Next Visit: 04/02/2023 If no future appointments scheduled, and last appointment is greater than a year ago, please schedule patient for a follow-up appointment Last date the medication was ordered: 03/03/2022 Is this request for a controlled substance?No Urine Drug Screen:No results found for this or any previous visit. Patient Phone Numbers Labs: Lab Results Component Value Date/Time CREAT 1.4 (H) 09/25/2022 02:13 PM CREAT 1.1 09/15/2019 02:08 PM POTASSIUM 4.1 09/25/2022 02:13 PM POTASSIUM 4.5 09/15/2019 02:08 PM TSH 2.04 11/23/2018 09:28 AM LDLCALC 62 05/28/2021 09:36 AM LDLCALC UNINTERPRETABLE RESULT 01/18/2015 09:02 AM LDLDIRECT 52 05/24/2020 03:12 PM LDLDIRECT 53 09/15/2019 02:08 PM LDLDIRECT 60 11/23/2018 09:28 AM ALT 74 (H) 09/25/2022 02:13 PM ALT 76 (H) 09/15/2019 02:08 PM HGBA1C 6.4 (H) 12/23/2021 02:14 PM HGBA1C 7.1 (H) 01/23/2020 03:38 PM documented in this encounter Plan of Treatment Upcoming Encounters Date Type Specialty Care Team Description 04/02/2023 Office Visit Internal Medicine Sergey Belcher MD [address] [place] [address] 04/03/2023 Office Visit Nephrology Regis Garner MD [address] [place] [address] 04/17/2023 Imaging Radiology 05/05/2023 Office Visit Urology Osorio Edgar MD [address] [facility] [place] [address] [place] [id number] Scheduled Procedures Name Priority Associated Diagnoses Date/Ti me COLONOSCOPY FLEXIBLE PROXIMAL DIAGNOSTIC Recall History of colon polyps Health Maintenance Due Date Last Done Comments Zoster Vaccines (1 of 2) 2010 DIABETES-EYE EXAM 01/28/2022 01/28/2021, , 04/13/2017, Additional history exists HbA1c 06/23/2022 12/23/2021, 05/14, 02/22/2021, Additional history exists COVID-19 Vaccine ( season) 2022 12/18/2020, 06/04/2020, 05/14/2020 Influenza Vaccine (FLU shot) (#1) 2022 12/23/2021, 01/25/2021, 12/09/2019, Additional history exists Depression Screening 12/23/2022 12/23/2021 Diabetic Foot Exam 12/23/2022 12/23/2021, 0 09/24/2020, 09/15/2019, Additional history exists GFR 03/28/2023 09/25/2022, 02/14, 12/23/2021, Additional history exists CKD HGB USE SMARTSET 31926 09/26/202309/25, 09/25/2022, 03/13/2022, Additional history exists CKD PHOS USE SMARTSET 25271 09/26/2023 09/25/2022, 1 Albumin/Creatinine Ratio 09/27/2023 023, 05/28/2021, 05/24/2020, Additional history exists DTaP,Tdap,and Td Vaccines (2 - Td or Tdap) 10/23/2025 10/24/2015, 08/14/2005 Lipid Panel 05/28/2026 05/28/2021, 05/14, 09/15/2019, Additional history exists COLONOSCOPY-EVERY 5 YRS AGES 18-100 04/23/2027 04/23/2022, 04/23/2022, 10/17/2016, Additional history exists Hepatitis B Completed 04/14/2014, 10/14, 09/20/2013 Pneumococcal Vaccine: Pediatrics (0 to 5 Years) and At-Risk Patients (6 to 64 Years) Completed 07/02/2022, 04/14/2006 GARDASIL-HPV IMMUNIZATION SERIES Aged Out No longer eligible based on patient's age to complete this topic MENINGOCOCCAL (MENACTRA/MENVEO) Aged Out No longer eligible based on patient's age to complete this topic documented as of this encounter Medical Devices Not on filedocumented as of this encounter Advance Directives Latest Code Status on File Code Status Date Activated Date Inactivated Comments Full Code 05/10/2021 10:49 AM 05/10/2021 6:51 PM This order reflects the patients wishes and were consensually agreed upon. Code Status History Code Status Date Activated Date Inactivated Comments Full Code 05/09/2021 2:10 PM 05/10/2021 10:49 AM This order reflects the patients wishes and were consensually agreed upon. Full Code 05/09/2021 9:12 AM 05/09/2021 2:10 PM This order reflects the patients wishes and were consensually agreed upon. Care Teams Firing Pin Gauger Relationship Specialty Start Date End Date Sergey Belcher MD [address] [place] [address], [place] [address] PCP - General Internal Medicine 01/02/21 documented as of this encounter
--- OUTSIDE RECORDS SUMMARY | 2023-03-25 17:52 | External Medical Summary | Summary of Care ---
Author Name Unknown Organization [facility] Address [address] [facility] [address] Phone [phone] Care Team Providers Care Solar Thermal Technician Name Role Phone Sergey Belcher MD Primary Care Provider + Reason for Visit * Reason Onset Date Comments Medication Refill 11/14/2022 Encounter Details Date Type Department Care Team Description 11/14/2022 Refill General Internal Medicine [facility] [place] [address] [facility] [place] [address] [facility] [address] [facility] [address] HTN, goal below 140/90 Allergies No known active allergiesdocumented as of this encounter (statuses as of 11/14/2022) Medications Medication Sig Dispensed Refills Start Date [...] 03/24/2017 Active Cyanocobalamin (VITAMIN B-12) 1000 MCG TabletIndications :B12 deficiency Take 1 Tablet by mouth in the morning. 0 03/31/2017 Active OneTouch UltraSoft Lancets MISCIndications:T ype 2 diabetes mellitus with hemoglobin A1c goal of less than 7.0% ([facility]) Use once daily every morning; dx E11.9 100 Each 1 09/12/2019 Active Latanoprost 0.005 % Ophthalmic Solution (Xalatan) Instill 1 Drop into the left eye at bedtime. 0 07/02/2020 Active Chlorthalidone 25 MG Oral Tablet (Hygroton)Indicat ions:HTN, goal below 140/90 Take by mouth 0.5 Tablets in the morning. In the morning.. 45 Tablet 3 08/21/2021 Active Losartan Potassium 100 MG Oral Tablet (Cozaar)Indicatio ns:HTN, goal below 140/90 Take by mouth 1 Tablet in the morning. 90 Tablet 3 08/21/2021 Active OneTouch Ultra Blue In Vitro Strip (Glucose Blood) CHECK GLUCOSE DAILY IN THE MORNING E11.9 100 Strip 3 03/03/2022 Active metFORMIN HCl 500 MG Oral Tablet (Glucophage)Indic ations:Type 2 diabetes mellitus with hemoglobin A1c goal of less than 7.0% (HCC) take 1 tablet by mouth twice a day with food 180 Tablet 0 06/10/2022 Active Simvastatin 10 MG Oral Tablet (Zocor)Indication s:Dyslipidemia, goal LDL below 160 take 1 tablet by mouth at bedtime 90 Tablet 0 06/10/2022 Active Dorzolamide HCl-Timolol Mal 22.3-6.8 MG/ML Ophthalmic Solution (Cosopt Ocumeter Plus) INSTILL 1 DROP INTO THE LEFT EYE TWICE DAILY 0 06/19/2022 Active Brimonidine Tartrate-Timolol 0.2-0.5 % Ophthalmic Solution 1 Drop in the morning and 1 Drop before bedtime. 0 Active Cholestyramine Light 4 GM Oral Packet (Prevalite)Indica tions:Dyslipidemi a, goal LDL below 100 DISSOLVE 1 PACKET IN 8 OZ OF WATER AND DRINK BY MOUTH TWICE A DAY DIRECTED 60 Packet 2 09/07/2022 Active Cholecalciferol 50 MCG (1999 UT) Oral CapsuleIndication s:Vitamin D deficiency Take 1 Capsule by mouth in the morning. 30 Capsule 3 09/29/2022 01/27/2023 Active amLODIPine Besylate 10 MG Oral Tablet (Norvasc)Indicati ons:HTN, goal below 140/90 Take 1 Tablet by mouth in the morning. 90 Tablet 3 11/14/2022 Active Metoprolol Succinate ER 50 MG Oral Tablet Extended Release 24 Hour (toPROL XL)Indications:HT N, goal below 140/90 Take 1 Tablet by mouth in the morning. 90 Tablet 3 11/14/2022 Active amLODIPine Besylate 10 MG Oral Tablet (Norvasc)Indicati ons:HTN, goal below 140/90 Take by mouth 1 Tablet in the morning. 90 Tablet 3 08/21/2021 11/14/2022 Discontinued (Refill) Metoprolol Succinate ER 50 MG Oral Tablet Extended Release 24 Hour (toPROL XL)Indications:HT N, goal below 140/90 Take by mouth 1 Tablet in the morning. 90 Tablet 3 08/21/2021 11/14/2022 Discontinued (Refill) documented as of this encounter (statuses as of 11/14/2022) Active Problems Problem Noted Date Elevated LFTs [...] as of this encounter (statuses as of 11/14/2022) Resolved Problems Problem Noted Date Resolved Date [...] as of this encounter (statuses as of 11/14/2022) Immunizations Name Administration Dates Next Due COVID-19 mRNA, LNP-s, No Pre serve, 2-Dose Series (Pfizer) 12/18/2020,06/04/2020,05/14/2020 Diptheria/Tetanus (Adult) 08/14/2005 H1N1 2009 Influenza, IM 01/28/2009 Hepatitis B, 20+ yrs 04/14/2014,10/25/2013,09/20 PPD 10/22/2015,10/15/2015 Pneumococcal Conjugate Vacci ne, 20-valent ([id number]) 07/02/2022 Pneumococcal Polysaccharide PPV23 (Pneumovax) 04/14/2006 Seasonal Influenza, PF, 6 mo ns & Above, IM , (Flulaval) 12/23/2021,01/25/2021,12/09/2019,11/23,12/07/2017 Seasonal Influenza, Quadriva lent, No Preserve, [...] (15 years old or older) Yes 05/09/19 22 Cognitive Status Response Date of Assessm ent Because of a physical, menta l, or emotional condition, do you have serious difficulty concentrating, remembering, or making decisions? (5 years old or older Yes 05/09/2021 documented as of this encounter Miscellaneous Notes * Telephone Encounter - Nory Szymanski, [facility] - 11/14/2022 11:48 AM EDTSigned Prescriptions: Disp Refills amLODIPine Besylate 10 MG Oral Tablet (Nor*90 Tab*3 Sig: Take 1 Tablet by mouth in the morning. Authorizing Provider: SERGEY BELCHER Ordering User: NORY SZYMANSKI Metoprolol Succinate ER 50 MG Oral Tablet *90 Tab*3 Sig: Take 1 Tablet by mouth in the morning. Authorizing Provider: SERGEY BELCHER Ordering User: Lakshmi SZYMANSKI * Telephone Encounter - Cathy Ray CPhT - 11/14/2022 11:44 AM EDT Patient needs refills ordered today Did you pend patient's preferred pharmacy and medication before forwarding?yes Pharmacy: [facility] #[id number] Pending Prescriptions: Disp Refills amLODIPine Besylate 10 MG Oral Tablet (No*90 Tab*3 Sig: Take 1 Tablet by mouth in the morning. Metoprolol Succinate ER 50 MG Oral Tablet*90 Tab*3 Sig: Take 1 Tablet by mouth in the morning. Last Visit: 07/02/2022 (in office), Visit date not found (telemedicine) Next Visit: 04/02/2023 If no future appointments scheduled, and last appointment is greater than a year ago, please schedule patient for a follow-up appointment Last date the medication was ordered: [id number] Is this request for a controlled substance?No [...] Visit Internal Medicine Sergey Belcher MD [address] [place] [address] 04/03/2023 Office Visit Nephrology Regis Garner MD [address] [place] [address] 04/17/2023 Imaging Radiology 05/05/2023 Office Visit Urology Osorio Edgar MD [address] [facility] [place] [address] [facility] [place] [address] Scheduled Procedures Name Priority Associated Diagnoses Date/Ti me COLONOSCOPY FLEXIBLE PROXIMAL DIAGNOSTIC Recall History of colon polyps Health Maintenance Due Date Last Done Comments Zoster Vaccines (1 of 2) 2010 COVID-19 Vaccine (4 - Pfizer series) 02/12/2021 12/18/2020, 06/04/2020, 05/14/2020 DIABETES-EYE EXAM 01/28/2022 01/28/2021, , 04/13/2017, Additional history exists HbA1c 06/23/2022 12/23/2021, 05/14, 02/22/2021, Additional history exists Influenza Vaccine (FLU shot) (#1) 2022 12/23/2021, 01/25/2021, 12/09/2019, Additional history exists DIABETES-FOOT EXAM 12/23/2022 12/23/2021, 0 09/24/2020, 09/15/2019, Additional history exists Depression Screening, Annual for Pts 12 and Over 12/23/2022 12/23/2021 GFR 03/28/2023 09/25/2022, 02/14, 12/23/2021, Additional history exists CKD HGB USE SMARTSET 61611 09/26/202309/25, 09/25/2022, 03/13/2022, Additional history exists CKD PHOS USE SMARTSET 71070 09/26/2023 09/25/2022, 1 Albumin/Creatinine Ratio 09/27/2023 023, [...] Not on filedocumented as of this encounter Visit Diagnoses Diagnosis HTN, goal below 140/90 Unspecified essential hypertension documented in this encounter Advance Directives Latest Code Status [...] and were consensually agreed upon. Care Teams Solar Thermal Technician Relationship Specialty Start Date End Date Sergey Belcher MD [address] [place] [address] PCP - General Internal Medicine 01/02/21 documented as of this encounter
--- OUTSIDE RECORDS SUMMARY | 2023-03-25 17:52 | External Medical Summary | Summary of Care ---
Author Name Unknown Organization [facility] [address] [place] [address] Phone [phone] Care Team Providers Care Bank Vault Attendant Name Role Phone Sergey Hameed MD Primary Care Provider + Reason for Visit * Reason Onset Date Comments Advice 03/25/2023 Encounter Details Date Type Department Care Team (Late st Contact Info) Description 03/25/2023 Telephone Nephrology, [facility] [address] [place] [address] Regis Garner MD [address] [place] [address] Advice Allergies No known active allergiesdocumented as of this encounter (statuses as of 03/25/2023) Medications Medication Sig Dispensed Refills Start Date [...] 03/24/2017 Active Cyanocobalamin (VITAMIN B-12) 1000 MCG TabletIndications:B1 2 deficiency Take 1 Tablet by mouth in the morning. 0 03/31/2017 Active OneTouch UltraSoft Lancets MISCIndications:Type 2 diabetes mellitus with hemoglobin A1c goal of less than 7.0% (HCC) Use once daily every morning; dx E11.9 100 Each 1 09/12/2019 Active Latanoprost 0.005 % Ophthalmic Solution (Xalatan) Instill 1 Drop into the left eye at bedtime. 0 07/02/2020 Active Chlorthalidone 25 MG Oral Tablet (Hygroton)Indication s:HTN, goal below 140/90 Take by mouth 0.5 Tablets in the morning. In the morning.. 45 Tablet 3 08/21/2021 Active Losartan Potassium 100 MG Oral Tablet (Cozaar)Indications: HTN, goal below 140/90 Take by mouth 1 [...] and 1 Drop before bedtime. 0 Active amLODIPine Besylate 10 MG Oral Tablet (Norvasc)Indications :HTN, goal below 140/90 Take 1 Tablet by mouth in the morning. 90 Tablet 3 11/14/2022 Active Metoprolol Succinate ER 50 MG Oral Tablet Extended Release 24 Hour (toPROL XL)Indications:HTN, goal below 140/90 Take 1 Tablet by mouth in the morning. 90 Tablet 3 11/14/2022 Active Simvastatin 10 MG Oral Tablet (Zocor)Indications:D yslipidemia, goal LDL below 160 take 1 tablet by mouth at bedtime 90 Tablet 0 12/01/2022 Active Cholestyramine Light 4 GM Oral Packet (Prevalite)Indicatio ns:Dyslipidemia, goal LDL below 100 DISSOLVE 1 PACKET IN 8 OZ OF WATER AND DRINK BY MOUTH TWICE A DAY DIRECTED 60 Packet 2 12/04/2022 Active metFORMIN HCl 500 MG Oral Tablet (Glucophage)Indicati ons:Type 2 diabetes mellitus with hemoglobin A1c goal of less than 7.0% (HCC) take 1 tablet by mouth twice a day with food 180 Tablet 1 12/22/2022 Active OneTouch Ultra In Vitro Strip (Glucose Blood) CHECK GLUCOSE DAILY IN THE MORNING E11.9 100 Strip 3 12/24/2022 Active documented as of this encounter (statuses as of 03/25/2023) Active Problems Problem Noted Date Diagnosed Date Elevated LFTs 02/02/2022 Chronic kidney disease, stage 3a 01/27/2022 Overview: Per CKD protocol Renal cell carcinoma of right kidney 05/27/2021 HTN, goal below 140/90 05/21/2015 Overview: Per HTN Protocol #27. DYSLIPIDEMIA, GOAL LDL BELOW 100 02/22/2009 Overview: Per Lipid Taxonomy. Type 2 diabetes mellitus wit h hemoglobin A1c goal of less than 7.0% 01/11/2009 Overview: Per Diabetes Taxonomy. ICD-10 update of inactive term Intellectual disability 06/10/2000 documented as of this encounter (statuses as of 03/25/2023) Resolved Problems Problem Noted Date Diagnosed Date Resolved Date Type 2 diabetes mellitus wit h diabetic nephropathy 12/23/2021 03/21/2022 Hematuria, gross 03/27/2021 12/23/2021 Right renal mass 03/27/2021 12/23/2021 HTN, GOAL BELOW 140/80 11/03/201106/20 Overview: Per HTN Protocol #27. HTN, GOAL BELOW 130/80 02/06/200911/05 Overview: Modified per HTN protocol #16. ADVANCE DIRECTIVE INFORMATION 07/16/2004 07/21/2016 Overview: not applicable Type 2 diabetes mellitus wit h hemoglobin A1c goal of less than 7.0% 07/16/2004 01/11/2009 Overview: Per Diabetes Taxonomy. ICD-10 update of inactive term Other specified disorders of liver 04/26/2004 07/28/2017 HYPERLIPIDEMIA NEC-NOS 02/22 Overview: Per Lipid Taxonomy. HYPERTENSION NOS 02/06/2009 Overview: Modified per HTN protocol #16. documented as of this encounter (statuses as of 03/25/2023) Immunizations Name Administration Dates Next Due COVID-19 mRNA, LNP-s, No Pre serve, 2-Dose Series (Pfizer) 12/18/2020,06/04/2020,05/14/2020 Diptheria/Tetanus (Adult) 08/14/2005 H1N1 2009 Influenza, IM 01/28/2009 Hepatitis B, 20+ yrs 04/14/2014,10/25/2013,09/20 PPD 10/22/2015,10/15/2015 Pneumococcal Conjugate Vacci ne, 20-valent ([id number]) 07/02/2022 Pneumococcal Polysaccharide PPV23 (Pneumovax) 04/14/2006 Seasonal Influenza, PF, 6 M & above, IM , (FluLaval or Fluzone) 12/23/2021,01/25/2021,12/09/2019,11/23,12/07/2017 Seasonal Influenza, Quadriva lent, No Preserve, IM 11/26/2016,01/25/2016,01/18/2015 Seasonal Influenza, Split, I IV3, With Preserve, Inj 12/26/2013,01/28/2013,12/09/2011,12/10,11/28/2009,01/09/2009,12/30/2007 ,12/31/2006,02/04/2006 TDAP (age 10 and older)(Boostrix) 10/24/2015 documented as of this encounter Social History Tobacco Use Types Packs/Day Years Used Date Smoking Tobacco: Never Smokeless Tobacco: Never Alcohol Use Standard Drinks/Week Comments No 0 (1 standard drink = 0.6 oz pur e alcohol) PHQ-2 Answer Date Recorded PHQ Adult Total Score 0 12/23/2021 Hunger Vital Sign Answer Date Recorded Within the past 12 months, y ou worried that your food would run out before you got the money to buy more. Never true 09/25/19 21 Within the past 12 months, t he food you bought just didn't last and you didn't have money to get more. Never true 09/24/2020 Sex and Gender Information Value Date Recorded Sex Assigned at Male 08/25/2018 3:37 PM EDT Gender Identity Male 08/25/2018 3:37 PM EDT Sexual Orientation Straight 08/25/2018 3: 37 PM EDT Job Start Date Occupation Industry Not on [...] or making decisions? (5 years old or older) Yes 05/09/2021 documented as of this encounter Miscellaneous Notes * Telephone Encounter - Ioana Meek RN - 03/25/2023 10:19 AM EST TE with pt's sister Tiffanie. She reports that she has noted that her brother, who she notes is mentallychallenged,seems to be losing weight based on how his clothes fit. She has not actually weighed him. He works at [employer] and they note that he has been holding right side as if he is having pain. Sister states he does not express pain. She reports that he has had no vomiting or diarrhea. She is concerned due to past hx of kidney cancer. IS scheduled to be seen by PCP and this provider next week. Please advise any testing recommended. documented in this encounter Plan of Treatment Upcoming Encounters Date Type Department Care Team (Late st Contact Info) Description 04/02/2023 11:00 AM EST Office Visit General Internal Medicine [facility] [address] [place] [address] Sergey Hameed MD [address] [place] [address] 04/03/2023 2:00 PM EST Office Visit Nephrology, [facility] [place] [address] [place] [address] Regis Garner MD [address] [place] [address] 04/17/2023 9:30 AM EST Imaging Radiology [address] [facility] [place] [address] 05/05/2023 10:00 AM EST Office Visit Urology, [facility] [address] [facility] [place] [address] Osorio Edgar MD [address] [facility] [place] [address] [address] Scheduled Procedures Name Priority Associated Diagnoses Date/Ti me COLONOSCOPY FLEXIBLE PROXIMAL DIAGNOSTIC Recall History of colon polyps Health Maintenance Due Date Last Done Comments Zoster Vaccines (1 of 2) 2010 Diabetic Eye Exam 01/28/2022 01/28/2021, , 04/13/2017, Additional history exists HbA1c 06/23/2022 12/23/2021, 05/14, 02/22/2021, Additional history exists COVID-19 Vaccine ( season) 2022 12/18/2020, 06/04/2020, 05/14/2020 Influenza Vaccine (FLU shot) (#1) 2022 12/23/2021, 01/25/2021, 12/09/2019, Additional history exists Depression Screening 12/23/2022 12/23/2021 Diabetic Foot Exam 12/23/2022 12/23/2021, 0 09/24/2020, 09/15/2019, Additional history exists GFR 03/28/2023 09/25/2022, 02/14, 12/23/2021, Additional history exists CKD HGB USE SMARTSET 86095 09/26/202309/25, 09/25/2022, 03/13/2022, Additional history exists CKD PHOS USE SMARTSET 27087 09/26/2023 09/25/2022, 1 Albumin/Creatinine Ratio 09/27/2023 023, [...] and were consensually agreed upon. Care Teams Bank Vault Attendant Relationship Specialty Start Date End Date Sergey Hameed MD [address] [facility] [place] [address] PCP - General Internal Medicine 01/02/21 documented as of this encounter
--- OUTSIDE RECORDS SUMMARY | 2023-03-25 17:52 | External Medical Summary | Summary of Care ---
Author Name Unknown Organization [facility] Address [address] [place] [address] Phone [phone] Care Team Providers Care In Shop Service Technician Name Role Phone Sergey Hameed MD Primary Care Provider + Reason for Visit * Reason Onset Date Comments TRIAGE 03/25/2023 Encounter Details Date Type Department Care Team (Late st Contact Info) Description 03/25/2023 Telephone [facility] [phone], Scheduling [address] [place] [address] TRIAGE Allergies No known active allergiesdocumented as of [...] PPD 10/22/2015,10/15/2015 Pneumococcal Conjugate Vacci ne, 20-valent ([id number]) 07/02/2022 Pneumococcal Polysaccharide PPV23 (Pneumovax) 04/14/2006 Seasonal [...] encounter Miscellaneous Notes * Telephone Encounter - Thi eKlly OSA - 03/25/2023 10:07 AM EST Please call patients sister cecilio back she is concerned about patient that he is grabbing his right side like he is in pain and has been losing weight fast and she is very concerned about him, patient of documented in this encounter Plan of Treatment Upcoming Encounters Date Type Department Care Team (Late st Contact Info) Description 04/02/2023 11:00 AM EST Office Visit [facility] [place] [address] [place] [address] Sergey Hameed MD [address] [place] [place] [address] 04/03/2023 2:00 PM EST Office [facility] [address] [place] [address] Regis Garner MD [address] [place] [place] [address] 04/17/2023 9:30 AM EST Imaging Radiology [address] [facility] [address] [facility] [place] [address] 05/05/2023 10:00 AM EST Office Visit Urology, [facility] [address] [facility] [place] [address] Osorio Edgar MD [address] [facility] [address] [address] Scheduled Procedures [...] Additional history exists CKD HGB USE SMARTSET 40628 09/26/202309/25, 09/25/2022, 03/13/2022, Additional history exists CKD PHOS USE SMARTSET 65854 09/26/2023 09/25/2022, 1 Albumin/Creatinine Ratio 09/27/2023 023, [...] and were consensually agreed upon. Care Teams In Shop Service Technician Relationship Specialty Start Date End Date Sergey Hameed MD [address] [facility] [place] [address] PCP - General Internal Medicine 01/02/21 documented as of this encounter
--- OUTSIDE RECORDS SUMMARY | 2023-03-25 17:52 | External Medical Summary | Summary of Care ---
Author Name Unknown Organization [facility] Address [address] [place] [facility] [place] [address] Phone [phone] Care Team Providers Care Youth Accommodation Support Worker Name Role Phone Sergey Belcher MD Primary Care Provider + Reason for Referral * Precert (Within 10 days (routine)) - Pending Review Specialty Diagnoses / Procedures Referred By Contac t Referred To Contact Radiology Diagnoses Clear cell carcinoma of right kidney (HCC) Procedures CT CHEST WO CONTRAST Osorio Edgar MD [address] [place] [address] Referral ID Status Reason Start Date Expiration Date V isits Requested Visits Authorized [id number] Pending Review 04/17/2023 999 999 * Precert (Within 10 days (routine)) - Pending Review Specialty Diagnoses / Procedures Referred By Contac t Referred To Contact Radiology Diagnoses Clear cell carcinoma of right kidney (HCC) Procedures CT ABD/PELVIS WO IV/ORAL CONTRAST Osorio Edgar MD [address] [place] [address] Referral ID Status Reason Start Date Expiration Date V isits Requested Visits Authorized [id number] Pending Review 04/17/2023 999 999 Reason for Visit * Reason Comments Follow Up Encounter Details Date Type Department Care Team Description 10/15/2022 Office Visit Urology, [address] [place] [address] Osorio Edgar MD 27 [facility] [address] [place] [address] Clear cell carcinoma of right kidney (HCC)*; Prostate cancer screening; Cyst of kidney, acquired; Right renal mass Allergies No known active allergiesdocumented as of this encounter (statuses as of 10/15/2022) Medications Medication Sig Dispensed Refills Start Date [...] hemoglobin A1c goal of less than 7.0% ([facility]) Use once daily every morning; dx E11.9 100 Each 1 09/12/2019 Active Latanoprost 0.005 % Ophthalmic Solution (Xalatan) Instill 1 Drop into the left eye at bedtime. 0 07/02/2020 Active amLODIPine Besylate 10 MG Oral Tablet (Norvasc)Indication s:HTN, goal below 140/90 Take by mouth 1 Tablet in the morning. 90 Tablet 3 08/21/2021 Active Chlorthalidone 25 MG Oral Tablet (Hygroton)Indicatio ns:HTN, goal below 140/90 Take by mouth 0.5 Tablets in the morning. In the morning.. 45 Tablet 3 08/21/2021 Active Losartan Potassium 100 MG Oral Tablet (Cozaar)Indications :HTN, goal below 140/90 Take by mouth 1 Tablet in the morning. 90 Tablet 3 08/21/2021 Active Metoprolol Succinate ER 50 MG Oral Tablet Extended Release 24 Hour (toPROL XL)Indications:HTN, goal below 140/90 Take by mouth 1 [...] 06/10/2022 Active Simvastatin 10 MG Oral Tablet (Zocor)Indications: [...] Packet 2 09/07/2022 Active Cholecalciferol 50 MCG (2000 UT) Oral CapsuleIndications: Vitamin D deficiency Take 1 Capsule by mouth in the morning. 30 Capsule 3 09/29/2022 01/27/2023 Active documented as of this encounter (statuses as of 10/15/2022) Active Problems Problem Noted Date Elevated LFTs [...] as of this encounter (statuses as of 10/15/2022) Resolved Problems Problem Noted Date Resolved Date [...] as of this encounter (statuses as of 10/15/2022) Immunizations Name Administration Dates Next Due COVID-19 mRNA, LNP-s, No Pre serve, 2-Dose Series (Pfizer) 12/18/2020,06/04/2020,05/14/2020 Diptheria/Tetanus (Adult) 08/14/2005 H1N1 2009 Influenza, IM 01/28/2009 Hepatitis B, 20+ yrs 04/14/2014,10/25/2013,09/20 PPD 10/22/2015,10/15/2015 Pneumococcal Conjugate Vacci ne, 20-valent ([id number]) 07/02/2022 Pneumococcal Polysaccharide PPV23 (Pneumovax) 04/14/2006 Seasonal Influenza, Quadriva lent, No Preserve, 6 Mons & Above, IM 12/23/2021,01/25/2021,12/09/2019,11/23,12/07/2017 Seasonal Influenza, Quadriva lent, No Preserve, [...] on file documented as of this encounter Last Filed Vital Signs Vital Sign Reading Time Taken Comments Blood Pressure - - Pulse - - Temperature 35.8 C (96.5 F) 10/15/2022 9:48 AM ED T Respiratory Rate - - Oxygen Saturation - - Inhaled Oxygen Concentration - - Weight 90.5 kg (199 lb 8 oz) 10/15/2022 9:48 AM EDT Height - - Body Mass Index 26.32 07/02/2022 1:42 PM EDT documented in this encounter Functional Status Functional Status Response [...] Yes 05/09/2021 documented as of this encounter Progress Notes * Osorio Edgar MD - 10/15/2022 9:45 AM EDT [id number] PCP: SERGEY [place] [address] Kolby Sherman is a 62 year old male with intellectual disability, who presents for six-month follow-up of his history of renal cell carcinoma. Patient's past notes reviewed. Patient is here today with his mother. Imaging studies are personally reviewed with patient. It has been 18 months since thepatient's nephrectomy. PSA value was excellent. Gross hematuria: Presented to Urology March 2021. Evaluated with renal ultrasound demonstrating right renal [id number]. Cystoscopy March 2020. Right renalcell carcinoma: Presented with hematuria. Status post right-sided hand assisted laparoscopic nephrectomy April of 2021. This demonstrates [place] grade 2/4 renal cell carcinoma, clear cell variant, a 0.5 cm in size, pT2 margins negative. Renal ultrasound March 2021: IMPRESSION 1. Large mass in upper pole of right kidney suspicious for renal cell carcinoma. 2. Bilateral renal cysts. CT scan Sep 2022: IMPRESSION Chest: 1. No metastatic disease in the chest. Abdomen: 1. Status post right nephrectomy. No recurrent disease on this non-contrast exam. 2. Left renal cystic lesions, one of which is minimally complex likely with proteinaceous content. 3. Mild nodularity of the hepatic contour, nonspecific though can be seen with very early cirrhosis. PSA Results: Lab Results Component Value Date/Time PSA - [facility] 1.01 09/25/2022 02:13 PM PSA - [facility] 0.68 03/29/2021 02:23 PM PSA SCREENING 0.67 08/12/2013 09:34 AM PSA SCREENING 0.80 05/29/2010 08:13 AM Creatinine Results: Lab Results Component Value Date/Time CREATININE - [facility] 1.4 (H) 09/25/2022 02:13 PM CREATININE - [facility] 1.5 (H) 03/13/2022 02:26 PM CREATININE - [facility] 1.4 (H) 12/23/2021 02:14 PM CREATININE - [facility] 1.1 09/15/2019 02:08 PM CREATININE - [facility] 1.1 03/25/2019 08:32 AM CREATININE - [facility] 1.1 11/23/2018 09:28 AM CREATININE, RANDOM URINE - [facility] 163 09/26/2022 08:18 AM CREATININE, RANDOM URINE - [facility] 162 09/26/2022 08:18 AM CREATININE, RANDOM URINE - [facility] 115 03/13/2022 02:28 PM CREATININE, RANDOM URINE - [facility] 152 03/25/2019 08:32 AM CREATININE, RANDOM URINE - [facility] 102 07/28/2017 08:53 AM CREATININE, RANDOM URINE - [facility] 153 07/21/2016 08:18 AM Current Outpatient Medications Medication Sig Dispense Refill GLUCOMETER DIABETES CARE KIT check glucose fasting in the morning daily 1 0 aspirin 81 MG chewable tablet Take 1 Tablet by mouth in the morning. with food.. 100 Tab 5 prednisolone acetate (PRED FORTE) 1 % ophthalmic suspension 0 Cyanocobalamin (VITAMIN B-12) 1000 MCG Tablet Take 1 Tablet by mouth in the morning. OneTouch UltraSoft Lancets [facility] Use once daily every morning; dx E11.9 100 Each 1 Latanoprost 0.005 % Ophthalmic Solution (Xalatan) Instill 1 Drop into the left eye at bedtime. amLODIPine Besylate 10 MG Oral Tablet (Norvasc) Take by mouth 1 Tablet in the morning. 90 Tablet 3 Chlorthalidone 25 MG Oral Tablet (Hygroton) Take by mouth 0.5 Tablets in the morning. In the morning.. 45 Tablet 3 Losartan Potassium 100 MG Oral Tablet (Cozaar) Take by mouth 1 Tablet in the morning. 90 Tablet3 Metoprolol Succinate ER 50 MG Oral Tablet Extended Release 24 Hour (toPROL XL) Take by mouth 1 Tablet in the morning. 90 Tablet 3 OneTouch Ultra Blue In Vitro Strip (Glucose Blood) CHECK GLUCOSE DAILY IN THE MORNING E11.9 100Strip 3 metFORMIN HCl 500 MG Oral Tablet (Glucophage) take 1 tablet by mouth twice a day with food 180 Tablet 0 Simvastatin 10 MG Oral Tablet (Zocor) take 1 tablet by mouth at bedtime 90 Tablet 0 Dorzolamide HCl-Timolol Mal 22.3-6.8 MG/ML Ophthalmic Solution (Cosopt Ocumeter Plus) INSTILL 1DROP INTO THE LEFT EYE TWICE DAILY Brimonidine Tartrate-Timolol 0.2-0.5 % Ophthalmic Solution 1 Drop in the morning and 1 Drop before bedtime. Cholestyramine Light 4 GM Oral Packet (Prevalite) DISSOLVE 1 PACKET IN 8 OZ OF WATER AND DRINK BY MOUTH TWICE A DAY DIRECTED 60 Packet 2 Cholecalciferol 50 MCG (1999 UT) Oral Capsule Take 1 Capsule by mouth in the morning. 30 Capsule 3 No current facility-administered medications for this visit. Review of patient's allergies indicates: No Known Allergies Social History: Social History Tobacco Use Smoking status: Never Smokeless tobacco: Never Substance Use Topics Alcohol use: No Vaping/E-Cigarette Use Vaping/E-Cigarette Use Never User Passive Exposure No Counseling Given? No Vaping/E-Cigarette Substances Vaping/E-Cigarette Devices Family History: Noncontributory. Past Surgical History: Procedure Laterality Date COLONOSCOPY W/ LESION REMOVAL, SNARE 10/08/2010 fair prep polyps--villous tissue repeat 1yr COLONOSCOPY, DIAGNOSTIC (RECTUM) 05/26/2012 COLONOSCOPY FLEXIBLE PROXIMAL DIAGNOSTIC performed by Tino Washington MD at ENDOSCOPY [facility] COLONOSCOPY, DIAGNOSTIC (RECTUM) 10/17/2016 normal, repeat 5 yrs/COLONOSCOPY FLEXIBLE PROXIMAL DIAGNOSTIC performed by Zulay Fung DO at ENDOSCOPY [facility] COLONOSCOPY, DIAGNOSTIC (RECTUM) 04/23/2022 normal, repeat 5 yrs / COLONOSCOPY FLEXIBLE PROXIMAL DIAGNOSTIC performed by Javi Muniz MD at ENDOSCOPY [facility] COLORECTAL CANCER SCREEN; NOT AT RISK 09/24/2010 Poor prep- exam needs to be repeated LAPARO RADICAL NEPHRECTOMY Right 05/09/2021 LAPAROSCOPIC RADICAL NEPHRECTOMY performed by Osorio Edgar MD at OR [facility] REMOVE CATARACT, INSERT LENS PROSTH Left 09/22/2019 Past Medical History: Diagnosis Date Benign neoplasm of colon 10/08/2010 fair prep polyps--villous tissue repeat 1yr DM type 2, goal A1c below 7 01/11/2009 Per Diabetes Taxonomy. Dyslipidemia, goal LDL below 100 02/22/2009 Per Lipid Taxonomy. Elevated LFTs 02/02/2022 Hematuria, gross 03/27/2021 HTN, goal below 140/80 11/03/2011 Per HTN Protocol #27. Intellectual disability Patient Active Problem List Diagnosis Code Intellectual disability F79 Type 2 diabetes mellitus with hemoglobin A1c goal of less than 7.0% ([facility]) E11.9 DYSLIPIDEMIA, GOAL LDL BELOW 100 E78.5 HTN, goal below 140/90 I10 Renal cell carcinoma of right kidney ([facility]) C64.1 Chronic kidney disease, stage 3a ([facility]) N18.31 Elevated LFTs R79.89 Unable to respond: intellectual disability, obtained from family Physical Exam Nursing note reviewed. Constitutional: General: He is not in acute distress. Appearance: He is not ill-appearing or toxic-appearing. HENT: Head: Atraumatic. Right Ear: External ear normal. Left Ear: External ear normal. Mouth/Throat: Mouth: Mucous membranes are moist. Eyes: Extraocular Movements: Extraocular movements intact. Pulmonary: Effort: Pulmonary effort is normal. No respiratory distress. Musculoskeletal: Cervical back: No rigidity. Skin: Coloration: Skin is not pale. Neurological: Coordination: Coordination abnormal. Psychiatric: Comments: Nonverbal Impression/Plan: 62-year-old male with intellectual disability, renal cell carcinoma, JOMAR times 18 months. Will continue q.6 month screening for the 1st 3 years as reviewed with NCCN. Stable LFTs noted. Will schedule imaging in 6 months, regular bloodwork ordered with PMD. Contact us sooner PRN issues.Yearly PSAs should suffice. Osorio Edgar MD 8:19 AM 10/15/2022 documented in this encounter Nursing Notes * Keila Parks LPN - 10/15/2022 9:48 AM EDT 6 month ret for renal cell carcinoma, CT & lab results. PSA Results: Lab Results Component Value Date/Time PSA - [facility] 1.01 09/25/2022 02:13 PM PSA - [facility] 0.68 03/29/2021 02:23 PM PSA SCREENING 0.67 08/12/2013 09:34 AM PSA SCREENING 0.80 05/29/2010 08:13 AM No urological concerns documented in this encounter Plan of Treatment Upcoming Encounters Date Type Specialty Care Team Description 04/02/2023 Office Visit Internal Medicine Sergey Belcher MD [address] [place] [address] 04/03/2023 Office Visit Nephrology Regis Garner MD [address] [place] [address] 04/17/2023 Imaging Radiology 05/05/2023 Office Visit Urology Osorio Edgar MD [address] [place] [address] Scheduled Orders Name Type Priority Associated Diagnoses Orde r Schedule CT ABD/PELVIS WO IV/ORAL CONTRAST Medical Imaging Routine Clear cell carcinoma of right kidney (HCC) Expected: 04/17/2023, Expires: 11/16/2023 CT CHEST WO CONTRAST Medical Imaging Routine Clear cell carcinoma of right kidney (HCC) Expected: 04/17/2023, Expires: 11/16/2023 Scheduled Procedures Name Priority Associated Diagnoses Date/Ti me COLONOSCOPY FLEXIBLE PROXIMAL DIAGNOSTIC Recall History of colon polyps Health Maintenance Due Date Last Done Comments Zoster Vaccines (1 of 2) 2010 COVID-19 Vaccine (4 - Pfizer series) 02/12/2021 12/18/2020, 06/04/2020, 05/14/2020 DIABETES-EYE EXAM 01/28/2022 01/28/2021, , 04/13/2017, Additional history exists HbA1c 06/23/2022 12/23/2021, 03/07/2021, 02/22/2021, Additional history exists Influenza Vaccine (FLU shot) (#1) 2022 12/23/2021, 01/25/2021, 12/09/2019, Additional history exists DIABETES-FOOT EXAM 12/23/2022 12/23/2021, 0 09/24/2020, 09/15/2019, Additional history exists Depression Screening, Annual for Pts 12 and Over 12/23/2022 12/23/2021 GFR 03/28/2023 09/25/2022, 02/14, 12/23/2021, Additional history exists CKD HGB USE SMARTSET 30210 09/26/202309/25, 09/25/2022, 03/13/2022, Additional history exists CKD PHOS USE SMARTSET 30411 09/26/2023 09/25/2022, 1 Albumin/Creatinine Ratio 09/27/2023 023, [...] as of this encounter Visit Diagnoses Diagnosis Clear cell carcinoma of right kidney (HCC)- Primary Prostate cancer screening Special screening for malignant neoplasm of prostate Cyst of kidney, acquired Acquired cyst of kidney Right renal mass Unspecified disorder of kidney and ureter documented in this encounter Advance Directives Latest [...] and were consensually agreed upon. Care Teams Youth Accommodation Support Worker Relationship Specialty Start Date End Date Sergey Belcher MD [address] [place] [address], [place] [address] PCP - General Internal Medicine 01/02/21 documented as of this encounter
--- OUTSIDE RECORDS SUMMARY | 2023-03-25 17:52 | External Medical Summary | Summary of Care ---
Author Name Unknown Organization [facility] Address [address] [place] [address] Phone [phone] Care Team Providers Care Plug Overwrap Machine Tender Name Role Phone Sergey Belcher MD Primary Care Provider + Reason for Visit * Reason Comments eRx-Medication Refill Encounter Details Date Type Department Care Team Description 12/21/2022 Refill General Internal Medicine [facility] [address] [place] [address] Sergey Belcher MD [address] [place] [address] Type 2 diabetes mellitus with hemoglobin A1c goal of less than 7.0% ([facility]) Allergies No known active allergiesdocumented as of this encounter (statuses as of 12/22/2022) Medications Medication Sig Dispensed Refills Start Date End Date Status GLUCOMETER DIABETES CARE KITIndications:D M type 2, goal A1c below 7 check glucose fasting in the morning daily 1 0 05/28/2005 Active aspirin 81 MG chewable tablet Take 1 Tablet by mouth in the morning. with food.. 100 Tab 5 10/24/2015 Active prednisolone acetate (PRED FORTE) 1 % ophthalmic suspension 0 03/24/2017 Active Cyanocobalamin (VITAMIN B-12) 1000 MCG TabletIndication s:B12 deficiency Take 1 Tablet by mouth in the morning. 0 03/31/2017 Active OneTouch UltraSoft Lancets MISCIndications: Type 2 diabetes mellitus with hemoglobin A1c goal of less than 7.0% (HCC) Use once daily every morning; dx E11.9 100 Each 1 09/12/2019 Active Latanoprost 0.005 % Ophthalmic Solution (Xalatan) Instill 1 Drop into the left eye at bedtime. 0 07/02/2020 Active Chlorthalidone 25 MG Oral Tablet (Hygroton)Indica tions:HTN, goal below 140/90 Take by mouth 0.5 Tablets in the morning. In the morning.. 45 Tablet 3 08/21/2021 Active Losartan Potassium 100 MG Oral Tablet (Cozaar)Indicati ons:HTN, goal below 140/90 Take by mouth [...] Active Cholecalciferol 50 MCG (1999 UT) Oral CapsuleIndicatio ns:Vitamin D deficiency Take 1 Capsule by mouth in the morning. 30 Capsule 3 09/29/2022 01/27/2023 Active amLODIPine Besylate 10 MG Oral Tablet (Norvasc)Indicat ions:HTN, goal below 140/90 Take 1 Tablet by mouth in the morning. 90 Tablet 3 11/14/2022 Active Metoprolol Succinate ER 50 MG Oral Tablet Extended Release 24 Hour (toPROL XL)Indications:H TN, goal below 140/90 Take 1 Tablet by mouth in the morning. 90 Tablet 3 11/14/2022 Active Simvastatin 10 MG Oral Tablet (Zocor)Indicatio ns:Dyslipidemia, goal LDL below 160 take 1 tablet by mouth at bedtime 90 Tablet 0 12/01/2022 Active Cholestyramine Light 4 GM Oral Packet (Prevalite)Indic ations:Dyslipide osman, goal LDL below 100 DISSOLVE 1 PACKET IN 8 OZ OF WATER AND DRINK BY MOUTH TWICE A DAY DIRECTED 60 Packet 2 12/04/2022 Active metFORMIN HCl 500 MG Oral Tablet (Glucophage)Kelley cations:Type 2 diabetes mellitus with hemoglobin A1c goal of less than 7.0% (HCC) take 1 tablet by mouth twice a day with food 180 Tablet 1 12/22/2022 Active metFORMIN HCl 500 MG Oral Tablet (Glucophage)[place]elley cations:Type 2 diabetes mellitus with hemoglobin A1c goal of less than 7.0% (HCC) take 1 tablet by mouth twice a day with food 180 Tablet 0 12/01/2022 12/22/2022 Discontinued documented as of this encounter (statuses as of 12/22/2022) Active Problems Problem Noted Date Elevated LFTs [...] as of this encounter (statuses as of 12/22/2022) Resolved Problems Problem Noted Date Resolved Date [...] as of this encounter (statuses as of 12/22/2022) Immunizations Name Administration Dates Next Due COVID-19 mRNA, LNP-s, No Pre serve, 2-Dose Series (Pfizer) 12/18/2020,06/04/2020,05/14/2020 Diptheria/Tetanus (Adult) 08/14/2005 H1N1 2009 Influenza, IM 01/28/2009 Hepatitis B, 20+ yrs 04/14/2014,10/25/2013,09/20 PPD 10/22/2015,10/15/2015 Pneumococcal Conjugate Vacci ne, 20-valent ([id number]) 07/02/2022 Pneumococcal Polysaccharide PPV23 (Pneumovax) 04/14/2006 SEASONAL [...] encounter Miscellaneous Notes * Telephone Encounter - Gene Smith RPh - 12/22/2022 4:14 PM EDT Signed Prescriptions: Disp Refills metFORMIN HCl 500 MG Oral Tablet (Glucopha*180 Ta*1 Sig: take 1 tablet by mouth twice a day with foodAuthorizing Provider: SERGEY BELCHER User: GENE SMITH documented in this encounter Plan of Treatment Upcoming Encounters Date Type Specialty Care Team Description 04/02/2023 Office Visit Internal Medicine Sergey Belcher MD [address] [place] [address], [place] [address] 04/03/2023 Office Visit Nephrology Regis Garner MD [address] [facility] [place], [place] [address] 04/17/2023 Imaging Radiology 05/05/2023 Office Visit Urology Osorio Edgar MD [address] [place] [address] Scheduled Procedures [...] Additional history exists CKD HGB USE SMARTSET 77436 09/26/202309/25, 09/25/2022, 03/13/2022, Additional history exists CKD PHOS USE SMARTSET 35242 09/26/2023 09/25/2022, 1 Albumin/Creatinine Ratio 09/27/2023 023, [...] as of this encounter Visit Diagnoses Diagnosis Type 2 diabetes mellitus with hemoglobin A1c goal of less than 7.0% (HCC) documented in this encounter Advance Directives Latest [...] and were consensually agreed upon. Care Teams Plug Overwrap Machine Tender Relationship Specialty Start Date End Date Sergey Belcher MD [address] [facility] [place] [address] PCP - General Internal Medicine 01/02/21 documented as of this encounter
--- OUTSIDE RECORDS SUMMARY | 2023-03-25 17:52 | External Medical Summary | Summary of Care ---
Author Name Unknown Organization [facility] Address [address] [place] [address] Phone [phone] Care Team Providers Care Nuclear Operator Name Role Phone Sergey Hameed MD Primary Care Provider + Reason for Visit * Reason Comments eRx-Medication Refill Encounter Details Date Type Department Care Team Description 11/14/2022 Refill General Internal Medicine [facility] [address] [place] [address] Sergey Hameed MD [address] [place] [address] HTN, goal below 140/90 Allergies No known active allergiesdocumented as of this encounter (statuses as of 11/15/2022) Medications Medication Sig Dispensed Refills Start Date [...] the morning. 90 Tablet 3 11/14/2022 Active documented as of this encounter (statuses as of 11/15/2022) Active Problems Problem Noted Date Elevated LFTs [...] as of this encounter (statuses as of 11/15/2022) Resolved Problems Problem Noted Date Resolved Date [...] as of this encounter (statuses as of 11/15/2022) Immunizations Name Administration Dates Next Due COVID-19 mRNA, LNP-s, No Pre serve, 2-Dose Series (Pfizer) 12/18/2020,06/04/2020,05/14/2020 Diptheria/Tetanus (Adult) 08/14/2005 H1N1 2009 Influenza, IM 01/28/2009 Hepatitis B, 20+ yrs 04/14/2014,10/25/2013,09/20 PPD 10/22/2015,10/15/2015 Pneumococcal Conjugate Vacci ne, 20-valent ([id number]) 07/02/2022 Pneumococcal Polysaccharide PPV23 (Pneumovax) 04/14/2006 Seasonal [...] encounter Miscellaneous Notes * Telephone Encounter - Chacorta Pagan [facility] - 11/15/2022 3:37 AM EDTRefused Prescriptions: Disp Refills amLODIPine Besylate 10 MG Oral Tablet (Nor*90 Tab*3 Sig: take 1tablet by mouth every morningRefused By: CHACORTA PAGAN for Refusal: Duplicate Request----- documented in this encounter Plan of Treatment Upcoming Encounters Date Type Specialty Care Team Description 04/02/2023 Office Visit Internal Medicine Sergey Hameed MD [address] [place] [address] 04/03/2023 Office Visit Nephrology Regis Garner MD [address] [place] [address] 04/17/2023 Imaging Radiology 05/05/2023 Office Visit Urology Osorio Edgar MD [address] [facility] [address] [place] [address] Scheduled Procedures Name [...] Additional history exists CKD HGB USE SMARTSET 23344 09/26/202309/25, 09/25/2022, 03/13/2022, Additional history exists CKD PHOS USE SMARTSET 50004 09/26/2023 09/25/2022, 1 Albumin/Creatinine Ratio 09/27/2023 023, [...] and were consensually agreed upon. Care Teams Nuclear Operator Relationship Specialty Start Date End Date Sergey Hameed MD [address] [place] [address], [place] [address] PCP - General Internal Medicine 01/02/21 documented as of this encounter
--- OUTSIDE RECORDS SUMMARY | 2023-03-25 17:52 | External Medical Summary | Summary of Care ---
Author Name Unknown Organization [facility] Address [address] [place] [address] Phone [phone] Care Team Providers Care Nursing Professor Name Role Phone Sergey Belcher MD Primary Care Provider + Reason for Visit * Reason Comments eRx-Medication Refill Encounter Details Date Type Department Care Team Description 12/03/2022 Refill General Internal Medicine [facility] [address] [place] [address] Sergey Belcher MD [address] [place] [address] Dyslipidemia, goal LDL below 100 Allergies No known active allergiesdocumented as of this encounter (statuses as of 12/04/2022) Medications Medication Sig Dispensed Refills Start Date [...] goal of less than 7.0% ([facility]) Use once daily every morning; dx E11.9 [...] before bedtime. 0 Active Cholecalciferol 50 MCG (1999) Oral CapsuleIndicatio ns:Vitamin D deficiency Take 1 [...] the morning. 90 Tablet 3 11/14/2022 Active metFORMIN HCl 500 MG Oral Tablet (Glucophage)Kelley cations:Type 2 diabetes mellitus with hemoglobin A1c goal of less than 7.0% (HCC) take 1 tablet by mouth twice a day with food 180 Tablet 0 12/01/2022 Active Simvastatin 10 MG Oral Tablet (Zocor)Indicatio ns:Dyslipidemia, goal LDL below 160 take 1 tablet by mouth at bedtime 90 Tablet 0 12/01/2022 Active Cholestyramine Light 4 GM Oral Packet (Prevalite)Indic ations:Dyslipide osman, goal LDL below 100 DISSOLVE 1 PACKET IN 8 OZ OF WATER AND DRINK BY MOUTH TWICE A DAY DIRECTED 60 Packet 2 12/04/2022 Active Cholestyramine Light 4 GM Oral Packet (Prevalite)Indic ations:Dyslipide osman, goal LDL below 100 DISSOLVE 1 PACKET IN 8 OZ OF WATER AND DRINK BY MOUTH TWICE A DAY DIRECTED 60 Packet 2 09/07/2022 12/04/2022 Discontinued documented as of this encounter (statuses as of 12/04/2022) Active Problems Problem Noted Date Elevated LFTs [...] as of this encounter (statuses as of 12/04/2022) Resolved Problems Problem Noted Date Resolved Date [...] as of this encounter (statuses as of 12/04/2022) Immunizations Name Administration Dates Next Due COVID-19 mRNA, LNP-s, No Pre serve, 2-Dose Series (Pfizer) 12/18/2020,06/04/2020,05/14/2020 Diptheria/Tetanus (Adult) 08/14/2005 H1N1 2009 Influenza, IM 01/28/2009 Hepatitis B, 20+ yrs 04/14/2014,10/25/2013,09/20 PPD 10/22/2015,10/15/2015 Pneumococcal Conjugate Vacci ne, 20-valent ([id number]) 07/02/2022 Pneumococcal Polysaccharide PPV23 (Pneumovax) 04/14/2006 Seasonal [...] encounter Miscellaneous Notes * Telephone Encounter - oJjo Low RPh - 12/04/2022 4:57 AM EDTSigned Prescriptions: Disp Refills Cholestyramine Light 4 GM Oral Packet (Pre*60 Pac*2 Sig: DISSOLVE 1 PACKET IN 8 OZ OF WATER AND DRINK BY MOUTH TWICE A DAY DIRECTEDAuthorizing Provider: SERGEY BELCHER User: JOJO LOW * Telephone Encounter - Jojo Low RPh - 12/04/2022 4:56 AM EDT Lipid panel previously ordered. Pt can obtain with next routine labs. documented in this encounter Plan of Treatment Upcoming Encounters Date Type Specialty Care Team Description 04/02/2023 Office Visit Internal Medicine Sergey Belcher MD 200 [facility] [address] 04/03/2023 Office Visit Nephrology Regis Garner MD 200 [facility] [place] [address] 04/17/2023 Imaging Radiology 05/05/2023 Office Visit Urology Osorio Edgar MD [address] [facility] [address] [facility] [place] [address] Scheduled Procedures Name Priority Associated Diagnoses Date/Ti me COLONOSCOPY FLEXIBLE PROXIMAL DIAGNOSTIC Recall History of colon polyps Health Maintenance Due Date Last Done Comments Zoster Vaccines (1 of 2) 2010 COVID-19 Vaccine (4 - Pfizer series) 02/12/2021 12/18/2020, 06/04/2020, 05/14/2020 DIABETES-EYE EXAM 01/28/2022 01/28/2021, , 04/13/2017, Additional history exists HbA1c 06/23/2022 12/23/2021, 0307/2021, 02/22/2021, Additional history exists Influenza Vaccine (FLU shot) (#1) 2022 12/23/2021, 01/25/2021, 12/09/2019, Additional history exists Depression Screening 12/23/2022 12/23/2021 Diabetic Foot Exam 12/23/2022 12/23/2021, 0 09/24/2020, 09/15/2019, Additional history exists GFR 03/28/2023 09/25/2022, 02/14, 12/23/2021, Additional history exists CKD HGB USE SMARTSET 83410 09/26/202309/25, 09/25/2022, 03/13/2022, Additional history exists CKD PHOS USE SMARTSET 30781 09/26/2023 09/25/2022, 1 Albumin/Creatinine Ratio 09/27/2023 023, [...] as of this encounter Visit Diagnoses Diagnosis Dyslipidemia, goal LDL below 100 Other and unspecified hyperlipidemia documented in this encounter Advance Directives Latest [...] and were consensually agreed upon. Care Teams Nursing Professor Relationship Specialty Start Date End Date Sergey Belcher MD 200 [facility] [place] [address] PCP - General Internal Medicine 01/02/21 documented as of this encounter
--- OUTSIDE RECORDS SUMMARY | 2023-03-25 17:52 | External Medical Summary | Summary of Care ---
Author Name Unknown Organization [facility] Address [address] [place] [facility] [place] [address] Phone [phone] Care Team Providers Care Bar Machine Operator Multiple Spindle Name Role Phone Sergey Belcher MD Primary Care Provider + Reason for Visit * Reason Comments eRx-Medication Refill Encounter Details Date Type Department Care Team (Late st Contact Info) Description 06/09/2022 Refill General Internal Medicine [facility] 200 [facility] [place] [id number] Sergey Belcher MD 200 [place] [address] Type 2 diabetes mellitus with hemoglobin A1c goal of less than 7.0% ([facility]); Dyslipidemia, goal LDL below 160 Allergies No known active allergiesdocumented as of this encounter (statuses as of 01/12/2023) Medications Medication Sig Dispensed Refills Start Date End Date Status GLUCOMETER DIABETES CARE KITIndications: DM type 2, goal A1c below 7 check glucose fasting in the morning daily 1 0 05/28/2005 Active aspirin 81 MG chewable tablet Take 1 Tablet by mouth in the morning. with food.. 100 Tab 5 10/24/2015 Active prednisolone acetate (PRED FORTE) 1 % ophthalmic suspension 0 03/24/2017 Active Cyanocobalamin (VITAMIN B-12) 1000 MCG TabletIndicatio ns:B12 deficiency Take 1 Tablet by mouth in the morning. 0 03/31/2017 Active OneTouch UltraSoft Lancets MISCIndications :Type 2 diabetes mellitus with hemoglobin A1c goal of less than 7.0% (HCC) Use once daily every morning; dx E11.9 100 Each 1 09/12/2019 Active Latanoprost 0.005 % Ophthalmic Solution (Xalatan) Instill 1 Drop into the left eye at bedtime. 0 07/02/2020 Active Chlorthalidone 25 MG Oral Tablet (Hygroton)Indic ations:HTN, goal below 140/90 Take by mouth 0.5 Tablets in the morning. In the morning.. 45 Tablet 3 08/21/2021 Active Losartan Potassium 100 MG Oral Tablet (Cozaar)Indicat ions:HTN, goal below 140/90 Take by mouth 1 Tablet in the morning. 90 Tablet 3 08/21/2021 Active OneTouch Ultra Blue In Vitro Strip (Glucose Blood) CHECK GLUCOSE DAILY IN THE MORNING E11.9 100 Strip 3 03/03/2022 Active amLODIPine Besylate 10 MG Oral Tablet (Norvasc)Indica tions:HTN, goal below 140/90 Take by mouth 1 Tablet in the morning. 90 Tablet 3 08/21/2021 3 Discontinued(Ref ill) metFORMIN HCl 500 MG Oral Tablet (Glucophage)Ind ications:Type 2 diabetes mellitus with hemoglobin A1c goal of less than 7.0% (HCC) take 1 tablet by mouth twice a day WITH BREAKFAST AND DINNER 180 Tablet 3 08/21/2021 3 Discontinued Metoprolol Succinate ER 50 MG Oral Tablet Extended Release 24 Hour (toPROL XL)Indications: HTN, goal below 140/90 Take by mouth 1 Tablet in the morning. 90 Tablet 3 08/21/2021 3 Discontinued(Ref ill) Simvastatin 10 MG Oral Tablet (Zocor)Indicati ons:Dyslipidemi a, goal LDL below 160 Take by mouth 1 Tablet before bedtime. 90 Tablet 3 08/21/2021 3 Discontinued Cholestyramine Light 4 GM Oral Packet (Prevalite)Kelley cations:Dyslipi demia, goal LDL below 100 DISSOLVE 1 PACKET IN 8 OZ OF WATER AND DRINK BY MOUTH TWICE A DAY DIRECTED 60 Packet 1 05/14/2022 3 Discontinued metFORMIN HCl 500 MG Oral Tablet (Glucophage)Ind ications:Type 2 diabetes mellitus with hemoglobin A1c goal of less than 7.0% (HCC) take 1 tablet by mouth twice a day with food 180 Tablet 0 06/10/2022 3 Discontinued Simvastatin 10 MG Oral Tablet (Zocor)Indicati ons:Dyslipidemi a, goal LDL below 160 take 1 tablet by mouth at bedtime 90 Tablet 0 06/10/2022 3 Discontinued documented as of this encounter (statuses as of 01/12/2023) Active Problems Problem Noted Date Diagnosed Date [...] as of this encounter (statuses as of 01/12/2023) Resolved Problems Problem Noted Date Diagnosed Date [...] as of this encounter (statuses as of 01/12/2023) Immunizations Name Administration Dates Next Due COVID-19 mRNA, LNP-s, No Pre serve, 2-Dose Series (Pfizer) 12/18/2020,06/04/2020,05/14/2020 Diptheria/Tetanus (Adult) 08/14/2005 H1N1 2009 Influenza, IM 01/28/2009 Hepatitis B, 20+ yrs 04/14/2014,10/25/2013,09/20 PPD 10/22/2015,10/15/2015 Pneumococcal Conjugate Vacci ne, 20-valent ([id number]) 07/02/2022 Pneumococcal Polysaccharide PPV23 (Pneumovax) 04/14/2006 SEASONAL INFLUENZA, PF, 6 M & Above, IM , (FLULAVAL or FLUZONE) 12/23/2021,01/25/2021,12/09/2019,11/23,12/07/2017 Seasonal Influenza, Quadriva lent, No Preserve, IM 11/26/2016,01/25/2016,01/18/2015 Seasonal Influenza, Split, I IV3, With Preserve, Inj 12/26/2013,01/28/2013,12/09/2011,12/10,11/28/2009,01/09/2009,12/30/2007 ,12/31/2006,02/04/2006,03/02/2001 TDAP (age 10 and older)(Boostrix) 10/24/2015 documented as of this encounter Social History Tobacco Use Types Packs/Day Years Used Date Smoking Tobacco: Never Smokeless Tobacco: Never Alcohol Use Standard Drinks/Week Comments No 0 (1 standard drink = 0.6 oz pur e alcohol) Sex and Gender Information Value Date Recorded [...] encounter Miscellaneous Notes * Telephone Encounter - Becki Narvaez PHARM Tech - 01/12/2023 7:54 PM EDT Received message from [facility] regarding patient needing labs. Letter was sent out to patient to advise. Thank you, Becki Narvaez Commercial Retoucher [facility] 01/12/2023,7:54 PM * Telephone Encounter - Chacorta Cueto [facility] - 06/10/2022 10:50 AM EDTSigned Prescriptions: Disp Refills metFORMIN HCl 500 MG Oral Tablet (Glucopha*180 Ta*0 Sig: take 1 tablet by mouth twice a day with foodAuthorizing Provider: SERGEY BELCHER User: CHACORTA BANUELOS Simvastatin 10 MG Oral Tablet (Zocor) 90 Tab*0 Sig: take 1 tablet by mouth at bedtimeAuthorizing Provider: SERGEY BELCHER User: CHACORTA BANUELOS * Telephone Encounter - Chacorta Cueto, [facility] - 06/10/2022 10:48 AM EDT Provided 90 days supply with 0 refill(s) until upcoming appointment. Per refill protocol patient should have Lipid panel on file within past year. Reviewed AMP report, Care Gaps/Health Maintenance, medications list, and for any routine labs typically ordered for this patient. Lab orders placed. Please contact patient to advise of labs ordered for blood draw. Fasting is not required. Advise toobtain labs before his scheduled office visit 07/02/2022. Thank You, Chacorta Banuelos [facility] Staff Pharmacist Pharmacy Refill Call Center 06/10/2022, 10:48 AM * Telephone Encounter - Chacorta Cueto, [facility] - 06/10/2022 10:47 AM EDT Pending Prescriptions: Disp Refills metFORMIN HCl 500 MG Oral Tablet (Glucoph*180 Ta*3 Sig: take 1 tablet by mouth twice a day with food Simvastatin 10 MG Oral Tablet (Zocor) [Ph*90 Tab*3 Sig: take 1 tablet by mouth at bedtime Last Visit: 12/23/2021 (in office), Visit date not found (telemedicine) Next Visit: 07/02/2022 If no future appointments scheduled, and last appointment is greater than a year ago, please schedule patient for a follow-up appointment Last date the medication was ordered: 08/21/21 Pharmacy: [id number] Is this request for a controlled substance? No Urine Drug Screen:No results found for this or any previous visit. Patient Phone Numbers Labs: Lab Results Component Value Date/Time CREAT 1.5 (H) 03/13/2022 02:26 PM CREAT 1.1 09/15/2019 02:08 PM POTASSIUM 4.2 03/13/2022 02:26 PM POTASSIUM 4.5 09/15/2019 02:08 PM TSH 2.04 11/23/2018 09:28 AM LDLCALC 62 05/28/2021 09:36 AM LDLCALC UNINTERPRETABLE RESULT 01/18/2015 09:02 AM LDLDIRECT 52 05/24/2020 03:12 PM LDLDIRECT 53 09/15/2019 02:08 PM LDLDIRECT 60 11/23/2018 09:28 AM ALT 86 (H) 03/13/2022 02:26 PM ALT 76 (H) 09/15/2019 02:08 PM HGBA1C 6.4 (H) 12/23/2021 02:14 PM HGBA1C 7.1 (H) 01/23/2020 03:38 PM documented in this encounter Plan of Treatment Upcoming Encounters Date Type Department Care Team (Late st Contact Info) Description 04/02/2023 11:00 AM EST Office Visit General Internal Medicine [facility] [address] [facility] [place] [address] Sergey Belcher MD [address] [facility] [place] [address] 04/03/2023 2:00 PM EST Office Visit Nephrology, [facility] [address] [facility] [place] [address] Regis Garner MD 200 [facility] [place] [address] 04/17/2023 9:30 AM EST [facility] [address] [facility] [place] [address] 05/05/2023 10:00 AM EST Office Visit Urology, [facility] [address] [facility] [place] [address] Osorio Edgar MD 27 [facility] [address] [place] [address] Scheduled Orders Name Type Priority Associated Diagnoses Orde r Schedule LIPID PANEL WITH DIRECT LDL IF TG IS HIGH Lab Routine Dyslipidemia, goal LDL below 160 Expected: 06/10/2022 (Approximate), Expires: 06/11/2023 Scheduled Procedures Name Priority Associated Diagnoses Date/Ti [...] Additional history exists CKD HGB USE SMARTSET 77655 09/26/202309/25, 09/25/2022, 03/13/2022, Additional history exists CKD PHOS USE SMARTSET 02798 09/26/2023 09/25/2022, 1 Albumin/Creatinine Ratio 09/27/2023 023, [...] A1c goal of less than 7.0% (HCC) Dyslipidemia, goal LDL below 160 Other and unspecified hyperlipidemia documented in this [...] and were consensually agreed upon. Care Teams Bar Machine Operator Multiple Spindle Relationship Specialty Start Date End Date Sergey Belcher MD [address] [place] [address] PCP - General Internal Medicine 01/02/21 documented as of this encounter
--- OUTSIDE RECORDS SUMMARY | 2023-03-25 17:53 | External Medical Summary | Summary of Care ---
Author Name Unknown Organization [facility] Address [address] [place] [facility] [place] [place] [place] [address] Phone [phone] Care Team Providers Care Special Services Director Name Role Phone Sergey Hameed MD Primary Care Provider + Reason for Visit * Reason Onset Date Comments Medication Refill 09/29/2022 Encounter Details Date Type Department Care Team Description 09/29/2022 Refill NephrologyJs 200 [facility] [address] Gato Garner MD [address] [facility] [address] Vitamin D deficiency* Allergies No known active allergiesdocumented as of this encounter (statuses as of 09/29/2022) Medications Medication Sig Dispensed Refills Start Date [...] as of this encounter (statuses as of 09/29/2022) Active Problems Problem Noted Date Elevated LFTs [...] as of this encounter (statuses as of 09/29/2022) Resolved Problems Problem Noted Date Resolved Date [...] as of this encounter (statuses as of 09/29/2022) Immunizations Name Administration Dates Next Due COVID-19 mRNA, LNP-s, No Pre serve, 2-Dose Series (Pfizer) 12/18/2020,06/04/2020,05/14/2020 Diptheria/Tetanus (Adult) 08/14/2005 H1N1 2009 Influenza, IM 01/28/2009 Hepatitis B, 20+ yrs 04/14/2014,10/25/2013,09/20 PPD 10/22/2015,10/15/2015 Pneumococcal Conjugate Vacci ne, 20-valent ([id number]) 07/02/2022 Pneumococcal Polysaccharide PPV23 (Pneumovax) 04/14/2006 Seasonal [...] encounter Miscellaneous Notes * Telephone Encounter - Gato Garner MD - 09/29/2022 11:26 AM EDTSigned Prescriptions: Disp Refills Cholecalciferol 50 MCG (1999 UT) Oral Caps*30 Cap*3 Sig: Take 1 Capsule by mouth in the morning.Authorizing Provider: GATO GARNER * Telephone Encounter - Ioana Meek RN - 09/29/2022 11:25 AM EDTPending Prescriptions: Disp Refills Cholecalciferol 50 MCG (2000 UT) Oral Caps*30 Cap*3 Sig: Take 1 Capsule by mouth in the morning. * Telephone Encounter - Ioana Meek RN - 09/29/2022 11:25 AM EDTPending Prescriptions: Disp Refills Cholecalciferol 50 MCG (1999 UT) Oral Caps*30 Cap*3 Sig: Take 1 Capsule by mouth in the morning. * Telephone Encounter - DOMENICO Henderson - 09/29/2022 11:00 AM EDT Pharmacy info updated * Telephone Encounter - Christina Schuster LPN - 09/29/2022 10:49 AM EDT Vit D and f/u labs ordered. Call to sister. NA. Left message for sister to call. Need to confirm pharmacy, sign lab orders and forward Vit D for authorization. * Telephone Encounter - Christina Schuster LPN - 09/29/2022 10:22 AM EDT ----- Message from Gato Garner MD sent at 09/29/2022 10:06 AM EDT ----- Vit D low and will correct. Kidney function stable. Urine test is also fine. Call his sister documented in this encounter Plan of Treatment Upcoming Encounters Date Type Specialty Care Team Description 10/15/2022 Office Visit Urology Osorio Edgar MD [address] [place] [address] 04/03/2023 Office Visit Nephrology Gato Garner MD 200 [place] [address] Scheduled Orders Name Type Priority Associated Diagnoses Orde r Schedule 25-HYDROXY VITAMIN D Lab Routine Vitamin D deficiency Expected: 01/27/2023 (Approximate), Expires: 03/28/2023 PTH Lab Routine Vitamin D deficiency Expected: 01/27/2023 (Approximate), Expires: 03/28/2023 Scheduled Procedures Name Priority Associated Diagnoses Date/Ti [...] and Over 12/23/2022 12/23/2021 GFR 03/28/2023 09/25/2022, 12/11/2021, 12/23/2021, Additional history exists CKD HGB USE SMARTSET 37531 09/26/202309/25, 09/25/2022, 03/13/2022, Additional history exists CKD PHOS USE SMARTSET 52405 09/26/2023 09/25/2022, 1 Albumin/Creatinine Ratio 09/27/2023 023, [...] as of this encounter Visit Diagnoses Diagnosis Vitamin D deficiency- Primary Unspecified vitamin D deficiency documented in this encounter Advance Directives Latest [...] and were consensually agreed upon. Care Teams Special Services Director Relationship Specialty Start Date End Date Sergey Hameed MD [address] [place] [address], [place] [address] PCP - General Internal Medicine 01/02/21 documented as of this encounter
[2023-03-25] MEDS ORDERED: GLUCOSE 40% GEL 15 GM TUBE PO PRN (19:50)
[2023-03-25] MEDS ORDERED: GLUCAGON FOR INJ 1 MG VIAL SQ PRN (19:50)
[2023-03-25] MEDS ORDERED: ACETAMINOPHEN 325 MG TAB PO PRN (19:50)
[2023-03-25] MEDS ORDERED: DEXTROSE 50% 50 ML SYRINGE IV PRN (19:50)
[2023-03-25] MEDS ORDERED: GLUCOSE 10 TAB/TUBE PO PRN (19:50)
[2023-03-25] MEDS ORDERED: CARBOHYDRATES FOR HYPOGLYCEMIA PO PRN (19:50)
[2023-03-25] MEDS: D5NSS + 20MEQ KCL 20 MEQ/1,000 ML BAG IV SCH (20:10)
[2023-03-25] MEDS: INSULIN ASPART PER UNIT CHARGE SC SCH (20:30)
[2023-03-25] MEDS: SIMVASTATIN 10 MG TAB PO SCH (20:31)
[2023-03-25] MEDS: DORZOLAMIDE/TIMOLOL 22.3/6.8MG/ML 10 ML BTL OPL SCH (20:32)
[2023-03-25] MEDS: LATANOPROST 0.005% OP SOLN 2.5 ML BTL OPL SCH (20:33)
[2023-03-25] MEDS: BRIMONIDINE TARTRATE 0.2% 5ML OPL SCH (20:33)
[2023-03-25] MEDS: PIPERACILLIN/TAZOBACTAM 4.5 GM in DEXTROSE 5% MINI-B 100 ML IV SCH (20:37)
--- OUTSIDE RECORDS SUMMARY | 2023-03-26 03:31 | External Medical Summary | Summary of Care ---
Author Name Unknown Organization [facility] Address [address] [facility] [place] [address] Phone [phone] Care Team Providers Care Ocean Biologist Name Role Phone Sergey Hameed MD Primary Care Provider + Reason for Visit * Reason Onset Date Comments Advice 03/25/2023 Encounter Details Date Type Department Care Team (Late st Contact Info) Description 03/25/2023 Telephone Nephrology, [facility] [address] [place] [address] Regis Garner MD 200 [place] [address] Advice Allergies No known active allergiesdocumented as [...] PPD 10/22/2015,10/15/2015 Pneumococcal Conjugate Vacci ne, 20-valent ([id number]) 07/02/2022 Pneumococcal Polysaccharide PPV23 (Pneumovax) 04/14/2006 Seasonal [...] encounter Miscellaneous Notes * Telephone Encounter - Regis Garner MD - 03/25/2023 12:40 PM EST Can start with renal And Bladder US . Also Do UA * Telephone Encounter - Ioana Meek RN - 03/25/2023 10:19 AM EST TE with pt's sister Tiffanie. She reports that she has noted that her brother, who she notes is mentallychallenged,seems to be losing weight based on how his clothes fit. She has not actually weighed him. He works at [employer] and they note that he has been [...] AM EST Office Visit General Internal Medicine [facility] [address] [place] [address] Sergey Hameed MD [address] [facility] [place] [address] 04/03/2023 2:00 PM EST Office Visit Nephrology, [facility] [address] [facility] [place] [address] Regis Garner MD [address] [facility] [place] [address] 04/17/2023 9:30 AM EST Imaging Radiology [facility] [address] [facility] [address] [facility] [place] [address] 05/05/2023 10:00 AM EST Office Visit Urology, [facility] [address] [place] [address] Osorio Edgar MD [address] [place] [address] Scheduled Procedures Name Priority Associated Diagnoses Date/Ti [...] Additional history exists CKD HGB USE SMARTSET 90967 09/26/202309/25, 09/25/2022, 03/13/2022, Additional history exists CKD PHOS USE SMARTSET 58852 09/26/2023 09/25/2022, 1 Albumin/Creatinine Ratio 09/27/2023 023, [...] and were consensually agreed upon. Care Teams Ocean Biologist Relationship Specialty Start Date End Date Sergey Hameed MD 200 [facility], [place] [id number] PCP - General Internal Medicine 01/02/21 documented as of this encounter
--- OUTSIDE RECORDS SUMMARY | 2023-03-26 03:31 | External Medical Summary | Summary of Care ---
Author Name Unknown Organization [facility] [address] [place] [address] Phone [phone] Care Team Providers Care Fiberglasser Name Role Phone Sergey Hameed MD Primary Care Provider + Reason for Visit * Reason Onset Date Comments Advice 03/25/2023 Encounter Details Date Type Department Care Team (Late st Contact Info) Description 03/25/2023 Telephone Nephrology, [facility] [address] [facility] [place] [address] Regis Garner MD [address] [facility] [place] [address] Advice Allergies No known active allergiesdocumented as [...] PPD 10/22/2015,10/15/2015 Pneumococcal Conjugate Vacci ne, 20-valent ([id number]) 07/02/2022 Pneumococcal Polysaccharide PPV23 (Pneumovax) 04/14/2006 Seasonal [...] as of this encounter Miscellaneous Notes * Addendum Note - Ioana Alvarenga RN - 03/25/2023 12:48 PM ESTAddended by: IOANA ALVARENGA on: 03/25/2023 12:48 PM Modules accepted: Orders * Telephone Encounter - Ioana Alvarenga RN - 03/25/2023 12:48 PM EST LMAM with call back number regarding ordered tests which are placed. * Telephone Encounter - Regis Garner MD - 03/25/2023 12:40 PM EST Can start with renal And Bladder US . Also Do UA * Telephone Encounter - Ioana Alvarenga RN - 03/25/2023 10:19 AM EST TE with pt's sister Tiffanie. She reports that she has noted that her brother, who she notes is mentallychallenged,seems to be losing weight based on how his clothes fit. She has not actually weighed him. He works at [employer] and they note that he has been [...] AM EST Office Visit General Internal Medicine [facility] [address] [facility] [place] [address] Sergey Hameed MD [address] [facility] [place] [id number] 04/03/2023 2:00 PM EST Office Visit Nephrology, [facility] [address] [facility] [place] [address] Regis Garner MD [address] [facility] [place] [address] 04/17/2023 9:30 AM EST Imaging Radiology [facility] [address] [facility], [place] [address] [facility] [place] [address] 05/05/2023 10:00 AM EST Office Visit Urology, [facility] [address] [facility] [place] [address] Osorio Edgar MD [address] [facility] [address] [place] [address] Scheduled Orders Name Type Priority Associated Diagnoses Orde r Schedule US RENAL Medical Imaging Routine Renal cell carcinoma of right kidney (HCC) Expected: 03/26/2023 (Approximate), Expires: 04/25/2024 URINALYSIS WITH MICROSCOPIC EXAM Lab Routine Renal cell carcinoma of right kidney (HCC) Expected: 03/25/2023 (Approximate), Expires: 03/25/2024 Scheduled Procedures Name Priority Associated Diagnoses Date/Ti [...] Additional history exists CKD HGB USE SMARTSET 47375 09/26/202309/25, 09/25/2022, 03/13/2022, Additional history exists CKD PHOS USE SMARTSET 96545 09/26/2023 09/25/2022, 1 Albumin/Creatinine Ratio 09/27/2023 023, [...] as of this encounter Visit Diagnoses Diagnosis Renal cell carcinoma of right kidney (HCC)- Primary documented in this encounter Advance Directives Latest [...] and were consensually agreed upon. Care Teams Fiberglasser Relationship Specialty Start Date End Date Sergey Hameed MD [address] [place] [address] PCP - General Internal Medicine 01/02/21 documented as of this encounter
[2023-03-26] MEDS: PIPERACILLIN/TAZOBACTAM 4.5 GM in DEXTROSE 5% MINI-B 100 ML IV SCH ×3 (05:01→21:38)
[2023-03-26] MEDS: D5NSS + 20MEQ KCL 20 MEQ/1,000 ML BAG IV SCH ×2 (05:01→14:58)
[2023-03-26] MEDS: LOSARTAN POTASSIUM 50 MG TAB PO SCH (08:14)
[2023-03-26] MEDS: amLODIPine BESYLATE 5 MG TAB PO SCH (08:14)
[2023-03-26] MEDS: METOPROLOL SUCC 50MG EXT REL TAB PO SCH (08:15)
[2023-03-26] MEDS: BRIMONIDINE TARTRATE 0.2% 5ML OPL SCH ×2 (08:16→21:25)
[2023-03-26] MEDS: prednisoLONE acetate 1% OP SUSP 5 ML BTL OPL SCH (08:17)
[2023-03-26] MEDS: DORZOLAMIDE/TIMOLOL 22.3/6.8MG/ML 10 ML BTL OPL SCH ×2 (08:17→21:27)
[2023-03-26] MEDS: INSULIN ASPART PER UNIT CHARGE SC SCH ×4 (08:34→21:22)
[2023-03-26 09:05] LABS: BUN Creatinine Ratio 13.7 (10-20); Bilirubin Direct 0.2 mg/dl (0-0.2); Bilirubin,Total 0.9 mg/dl (0.2-1.0); Calcium 8.9 mg/dl (8.6-10.3); Creatinine Clr Calc Pharmacy 67.8 ml/min; Est GFR (African American) 71.8 ml/min; Est GFR (Non-African American) 61.9 ml/min; Potassium 3.8 mmol/L (3.5-5.1); Total Protein 7.7 gm/dl (6.0-8.3)
[2023-03-26] MEDS: ASPIRIN 81 MG ECTAB PO SCH (09:30)
[2023-03-26 09:32] LABS: Hematocrit (blood only) 40.8 % (42.0-52.0); Hemoglobin 14.7 g/dl (14.0-18.0); Mean Corpuscular Hemoglobin 34.1 pg (25.0-34.0); Mean Corpuscular Volume 94.7 fL (80.0-100.0); Mean Platelet Volume 10.3 fL (9.4-12.4); Platelet Count 200 K/uL (130-400); RDW Coefficient of Variation 12.3 % (11.5-14.5); RDW Standard Deviation 42.8 fL (36.4-46.3); Red Blood Count 4.31 M/uL (4.70-6.10); White Blood Count 4.97 K/ul (4.8-10.8)
[2023-03-26 09:47] LABS: Estimated Average Glucose 126 mg/dl
--- NOTE | 2023-03-26 11:41 | Surgery Progress Note ---
Date of Service March 26, 2023 Assessment & Plan (1) Diverticulitis: Plan: Patient here with diverticulitis and concern for colo-colo fistula WBC 4, VSS, afebrile Abdomen soft, maybe some mild discomfort to deep palpation in the LLQ at best Tolerating clears, will continue to adv diet slowly as tolerates to low fiber until bowels normalize. + flatus, no BM in house complete course of abx upon dispo outpatient f/u with colorectal surgery/GI Admission and Anticipated Discharge Date Admission Date: March 25, 2023 Supervising Physician Co-Signing Physician Notes Patient seen and examined, labs reviewed, agree with above. Admitted with mild diverticulitis with possible developing colocolonic fistula. Patient is not expressing pain. He is on full liquids. Abdomen is soft, nontender. WBC normal. Recommend slowly advance to low fiber diet. May continue course of antibiotics, follow-up with GI/colorectal surgery as an outpatient Subjective Patient reports feeling improvement in symptoms. Currently denies any abdominal pain/nausea/vomiting. + flatus. no BM .Tolerating clears. Did not sleep well last night per family. Physical Exam Physical Exam: awake, no distress Gastrointestinal (Abdomen): Inspection/Auscultation: abdomen not distended Percussion/Palpation: + abdomen tender (very mild discomfort in the LLQ) and abdomen soft Results & Data Vital Signs (Past 12 Hours) Vital Signs Temp Pulse Resp BP Pulse Ox O2 Del Method 03/26/23 08:17 36.8 C 56 L 16 148/74 H 97 Room Air 03/26/23 08:13 61 168/86 H 03/26/23 01:04 Room Air PG Care Time/CCT Total # of Minutes Spent Total Time Spent with Patient: Total time spent is greater than 50% in coordination of care (as documented) at patient's floor/unit and/or counseling patient: Coding Level of Care Code 40275 SUB INP/OBS CARE Diagnoses Diverticulitis K57.92
--- NOTE | 2023-03-26 15:32 | Hospitalist Progress Note ---
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 Acute diverticulitis Colocolonic fistula --CT abd:There is inflammatory change between the distal descending colon and the proximal sigmoid as above. This is linear in configuration and appears to arise from a small diverticulum along the superior aspect of the sigmoid. This likely presents the sequelae of diverticulitis with a developing fistula. No intraperitoneal free air is seen and there is no fluid collection to suggest abscess. Status post right nephrectomy. There are bilateral bowel containing groin hernias. Prostatomegaly. -- Continue IV Zosyn, fluids Advance diet as tolerated Appreciate surgery input Needs follow-up with colorectal surgery as outpatient Bilateral inguinal hernia No signs of obstruction currently Needs follow-up with surgery as outpatient (2) Hypertension: Plan: Chronic, stable Continue amlodipine, losartan, metoprolol Hold chlorthalidone for now (3) DM type 2 (diabetes mellitus, type 2): Plan: Hgb A1c 6.0 Hold metformin Utilize Insulin per protocol while hospitalized (4) CKD (chronic kidney disease), stage III: Plan: Baseline creatinine mid 1s Creatinine at [facility] Monitor renal functions (5) Renal cell carcinoma: Plan: S/p right nephrectomy No acute issue DVT Px SCDs for now Admission and Anticipated Discharge Date Admission Date: March 25, 2023 Subjective Patient is seen and examined at bedside Abdominal pain much improved Poor historian due to cognitive issues Discussed with patient's family at bedside Tolerating liquid diet today Denies any nausea, vomiting, chest pain, dyspnea Review of Systems Review of Systems: All systems reviewed & are unremarkable except as noted in Subjective Physical Exam Physical Exam: Physical Exam: Vitals signs as noted above General Appearance:Moderately built and nourished, no apparent distress Head: normocephalic, Atraumatic Eyes: normal inspection, EOMI Neck: supple, Trachea midline Respiratory/Chest: Normal breath sounds, CTA, No accessory muscle use Cardiovascular: S1, S2, No murmur Abdomen/GI:Soft, Non tender, Bowel sounds present Extremities/Musculoskeletal:normal inspection, no edema Neurologic/Psych:AAO, no focal neurological deficits, + chronic cognitive disability Skin: normal color, warm Results & Data Results & Data Vital Signs (Past 12 Hours) Vital Signs Temp Pulse Resp BP Pulse Ox O2 Del Method 03/26/23 08:17 36.8 C 56 L 16 148/74 H 97 Room Air 03/26/23 08:13 61 168/86 H Laboratory Results Short CBC 03/26/23 Range/Units 07:55 WBC 4.97 (4.8-10.8) K/ul Hgb 14.7 (14.0-18.0) g/dl Hct 40.8 L (42.0-52.0) % Plt Count 200 (130-400) K/uL BMP 03/26/23 07:55 Sodium 136 Potassium 3.8 Chloride 105 Carbon Dioxide 23 BUN 17 Creatinine 1.24 Glucose 135 H Calcium 8.9 Liver Function 03/26/23 Range/Units 07:55 Total Bilirubin 0.9 (0.2-1.0) mg/dl Direct Bilirubin 0.2 (0-0.2) mg/dl AST 35 (13-39) U/L ALT 54 H (7-52) U/L Alkaline Phosphatase 45 (34-104) U/L Albumin 4.0 (3.4-5.0) gm/dl
[2023-03-26] MEDS: SIMVASTATIN 10 MG TAB PO SCH (21:25)
[2023-03-26] MEDS: LATANOPROST 0.005% OP SOLN 2.5 ML BTL OPL SCH (21:26)
[2023-03-27] MEDS: D5NSS + 20MEQ KCL 20 MEQ/1,000 ML BAG IV SCH (01:03)
[2023-03-27] MEDS: PIPERACILLIN/TAZOBACTAM 4.5 GM in DEXTROSE 5% MINI-B 100 ML IV SCH (05:16)
[2023-03-27 07:11] LABS: Hematocrit (blood only) 42.1 % (42.0-52.0); Hemoglobin 14.4 g/dl (14.0-18.0); Mean Corpuscular Hemoglobin 33.6 pg (25.0-34.0); Mean Corpuscular Hgb Conc 34.2 g/dL (32.0-36.0); Mean Corpuscular Volume 98.1 fL (80.0-100.0); Platelet Count 186 K/uL (130-400); RDW Coefficient of Variation 12.6 % (11.5-14.5); Red Blood Count 4.29 M/uL (4.70-6.10); White Blood Count 7.03 K/ul (4.8-10.8)
[2023-03-27 07:47] LABS: Albumin Level 3.8 gm/dl (3.4-5.0); Bilirubin,Total 0.8 mg/dl (0.2-1.0); Calcium 8.9 mg/dl (8.6-10.3); Potassium 4.3 mmol/L (3.5-5.1)
[2023-03-27 07:53] LABS: BUN Creatinine Ratio 9.5 (10-20); Creatinine Clr Calc Pharmacy 61.4 ml/min; Est GFR (African American) 63.6 ml/min; Est GFR (Non-African American) 54.9 ml/min; Globulin 3.7 gm/dl (2.5-4.0); Total Protein 7.5 gm/dl (6.0-8.3)
[2023-03-27] MEDS: ASPIRIN 81 MG ECTAB PO SCH (08:20)
[2023-03-27] MEDS: METOPROLOL SUCC 50MG EXT REL TAB PO SCH (08:20)
[2023-03-27] MEDS: LOSARTAN POTASSIUM 50 MG TAB PO SCH (08:20)
[2023-03-27] MEDS: amLODIPine BESYLATE 5 MG TAB PO SCH (08:20)
[2023-03-27] MEDS: prednisoLONE acetate 1% OP SUSP 5 ML BTL OPL SCH (08:20)
[2023-03-27] MEDS: DORZOLAMIDE/TIMOLOL 22.3/6.8MG/ML 10 ML BTL OPL SCH (08:20)
[2023-03-27] MEDS: BRIMONIDINE TARTRATE 0.2% 5ML OPL SCH (08:21)
[2023-03-27] MEDS: INSULIN ASPART PER UNIT CHARGE SC SCH (08:46)
--- NOTE | 2023-03-27 08:58 | Surgery Progress Note ---
Date of Service March 27, 2023 Assessment & Plan (1) Diverticulitis: Plan: Patient here with diverticulitis and concern for colo-colo fistula WBC 7, VSS, afebrile Abdomen soft, non tender He is tolerating full liquids without issues, passing flatus Will advance to low fiber and see how he fairs, if goes well family would like to take him home today complete course of po abx upon dispo Recommend outpatient f/u with colorectal surgery/GI Admission and Anticipated Discharge Date Admission Date: March 25, 2023 Supervising Physician Co-Signing Physician Notes Patient discussed with Elly FOSTER, agree with above. Admitted with concern for colocolonic fistula secondary to diverticulitis, pain significantly improved with IV antibiotics. Tolerating diet. No indication for urgent surgical intervention. Would recommend follow-up with colorectal as an outpatient Subjective Patient appears in no distress. Denies any abdominal pain/n/v. Reports + gas. eating his full liquids without issues. Physical Exam Physical Exam: awake, no distress Respiratory: normal respiratory effort Gastrointestinal (Abdomen): Inspection/Auscultation: + abdomen distended (mild) Percussion/Palpation: abdomen soft; abdomen nontender Results & Data Vital Signs (Past 12 Hours) Vital Signs Temp Pulse Pulse Resp BP Pulse Ox O2 Del Method 03/27/23 07:42 37.0 C 65 18 160/80 H 94 Room Air 03/26/23 21:30 37.3 C 65 18 138/78 94 Room Air PG Care Time/CCT Total # of Minutes Spent Total Time Spent with Patient: Total time spent is greater than 50% in coordination of care (as documented) at patient's floor/unit and/or counseling patient: Coding Level of Care Code 43510 SUB INP/OBS CARE 04/09MIN Diagnoses Diverticulitis K57.92
--- NOTE | 2023-03-27 09:48 | Discharge Summary ---
Discharge Summary Date of Service March 27, 2023 Notes For Next Care Provider needs f/u with colorectal surgery Medication Changes From Visit Augmentin x 7 days given at discharge Cont low fiber diet. Admission HPI Per Admitting Provider 62-year-old male with PMH intellectual disability, DM type II, dyslipidemia, HTN, CKD stage III, renal cell carcinoma s/p right nephrectomy, and other problems listed below who presents to the ED for evaluation of abdominal pain. History limited from the patient due to underlying intellectual disability, history obtained from the sister who is the bedside. 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 Sister also reports that she has noted a large amount of weight loss over the past 2 months however she is unsure of how many pounds. Reports that patient continues to have a good appetite. No other symptoms reported. Denies vomiting and diarrhea. No fevers or chills. In the ED, patient is afebrile, hemodynamically stable, WBC 6K. CT ABD/pelvis shows There is inflammatory change between the distal descending colon and the proximal sigmoid as above. This is linear in configuration and appears to arise from a small diverticulum along the superior aspect of the sigmoid. This likely presents the sequelae of diverticulitis with a developing fistula. Patient was given IV Zosyn and general surgery has evaluated the patient. 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 He has autism and intellectual disability and a significant history of renal cancer status post right nephrectomy. He was found to have acute diverticulitis with a complication of fistula. He was placed on bowel rest and IV fluids were given for hydration. He was started on Zosyn and surgery was consulted. Conservative management was recommended with outpatient follow-up with colorectal surgery and GI. A CT with oral and IV contrast may better define the process but because he did not have a clinical decline during hospitalization this was not performed. May be considered as outpatient. At time of discharge he was oxygenating well on room air he was hemodynamically stable and afebrile for greater than 24 hours. He denied any pain and his sister who is also a manager estate confirmed that his pain is improved and he is tolerating oral food without issues. He was sent home in stable condition with close primary care follow-up and colorectal surgery follow-up for definitive treatment of the complicated diverticulitis. An additional 7 days of Augmentin was given at discharge. Discharge Exam CONSTITUTIONAL: WNWD, vitals as above, generally well-appearing EYES: normal conjunctivae, no scleral icterus ENT: external ear and nose normal, MMM NECK: trachea midline RESPIRATORY: clear to auscultation bilaterally, no crackles, rales or wheezes, normal respiratory effort CARDIOVASCULAR: regular rate and rhythm, S1 and 2 heard without murmurs, gallops or rubs, no JVD, no peripheral edema CHEST: inspection of chest was normal GASTROINTESTINAL: normal bowel sounds, soft, nontender, ND, no guarding MUSCULOSKELETAL: strength 5/5 throughout, head is normocephalic and atraumatic SKIN: warm and dry NEUROLOGIC: CN 2-12 grossly intact, no sensory deficit, normal cognition, normal speech, no tremor PSYCHIATRIC: alert cooperative and oriented to person, place and time. Euthym ic mood, makes good eye contact, language grossly intact, recent and remote memory grossly intact. Updated Medication List Medication Instructions Recorded Confirmed Type simvastatin 10 mg tablet (Zocor) 10 mg PO QPM 12/10/17 03/25/23 History aspirin 81 mg tablet,delayed 81 mg PO QAM 07/29/19 03/25/23 History release amlodipine 10 mg tablet 10 mg PO QAM 03/25/23 03/25/23 History brimonidine 0.2 % eye drops 1 drp OPL BID 03/25/23 03/25/23 History chlorthalidone 25 mg tablet 12.5 mg PO QAM 03/25/23 03/25/23 History cholestyramine-aspartame 4 gram 1 ea PO BID 03/25/23 03/25/23 History oral powder for susp in a packet (Prevalite) cyanocobalamin (vitamin B-12) 1,000 mcg PO QAM 03/25/23 03/25/23 History 1,000 mcg tablet (Vitamin B-12) dorzolamide 22.3 mg-timolol 6.8 1 drp OPL BID 03/25/23 03/25/23 History mg/mL eye drops latanoprost 0.005 % eye drops 1 drp OPL HS 03/25/23 03/25/23 History losartan 100 mg tablet 100 mg PO QAM 03/25/23 03/25/23 History metformin 500 mg tablet 500 mg PO BID 03/25/23 03/25/23 History metoprolol succinate 50 mg 50 mg PO QAM 03/25/23 03/25/23 History tablet,extended release 24 hr prednisolone acetate 1 % eye 1 drp OPL DAILY 03/25/23 03/25/23 History drops,suspension amoxicillin 875 mg-potassium 1 tab PO BID #14 tabs 03/27/23 Rx clavulanate 125 mg tablet Hospital Stay Data Consultations 03/25/23 16:35 ED Decision to Admit Stat 03/25/23 19:50 Consult General Surgery Routine Diagnostic Imagining Performed 03/25/23 13:01 CT abd pelvis wo con Stat Pending Results Patient Have Any Pending Studies at Discharge: No Discharge Instructions Given to Patient (Per Discharging Provider) Please take all medications as instructed on discharge list below. You have some additional antibiotics to complete which are being provided on discharge. You were found to have a complicated diverticulitis (inflammation in your colon) which needs further evaluation by a colorectal onboarding specialist. Please followup with your primary care physician in one week to ensure you are still doing well after returning home from the hospital, and to help you with a referral to this specialist for definitive treatment. It was a pleasure taking care of you! Please call if you have any questions or problems. You can reach a [facility] hospitalist on duty at [facility] 24 hours a day by calling [phone]. Take care of yourself. Becki Tillman, [facility] Hospitalist Total Time Total Time Spent Total Time Spent (In Minutes): 60
== END 2023-03-27 11:55 | disposition home or self-care (01) | DRG 394 ==
LOC: ED 12:23 → SUATTDRO 16:40 → EDINP 16:40 → 3N 19:51